=== PATIENT | female | born 1995 | race Caucasian/White ===

== ENCOUNTER 2019-12-20 20:54 | Emergency (ER) | payer MEDICAID ==
[2019-12-20] MEDS ORDERED: Sodium Chloride 0.9% 1,000 ML IV ONE (21:47)
--- NOTE | 2019-12-20 21:58 | EDM.PDOC ---
<Ezekiel Varma - Last Filed: 12/21/19 00:55> ED HPI GENERAL MEDICAL PROBLEM - General Chief Complaint: General Stated Complaint: TOOTH PAIN Time Seen by Provider: 12/20/19 21:03 - Related Data Allergies Allergy/AdvReac Type Severity Reaction Status Date / Time latex Allergy Rash Verified 12/20/19 21:15 meperidine [From Demerol] Allergy Anaphylactic Verified 12/20/19 21:13 Shock sulfamethoxazole Allergy Rash Verified 12/20/19 21:14 [From Bactrim] trimethoprim [From Bactrim] Allergy Rash Verified 12/20/19 21:14 Home Meds: Home Meds Amoxicillin/Potassium Clav [Augmentin 875-125 Tablet] 1 mg PO BID 12/20/19 [History] Aspirin 81 mg PO DAILY 12/20/19 [History] Vit37/Iron/Folic Acid [Prenata] 1 mg PO DAILY 12/20/19 [History] ED GENERAL MEDICAL PROCEDURES - Additional/Other Procedure(s) Other (Free Text) Procedure(s): Dental Block Consent was obtained, risks benefits and alternatives were discussed and understood. Following this a 27-gauge needle was used to introduce 3 mL of bupivacaine with epinephrine in a standard left inferior alveolar nerve block p attern. Needle was withdrawn intact and there were no immediate complications the patient tolerated the procedure well and on reexamination had improved pain. Arnold Varma MD Dental Block #2 Consent was obtained, risks benefits and alternatives were discussed and understood. Following this a 27-gauge needle was used to introduce 3 mL of bupivacaine with epinephrine in a standard left inferior alveolar nerve block pattern. Needle was withdrawn intact and there were no immediate complications the patient tolerated the procedure well and on reexamination had improved pain. Arnold Varma MD Departure - Departure Time of Disposition: 00:57 Disposition: Home, Self-Care 01 Condition: Good Clinical Impression: Pain, dental - Discharge Information *PRESCRIPTION DRUG MONITORING PROGRAM REVIEWED*: Not Applicable *COPY OF PRESCRIPTION DRUG MONITORING REPORT IN PATIENT EDWIN: Not Applicable Instructions: Tooth Injuries, [id number] Referrals: Janeen Oconnor NP [Primary Care Provider] - Forms: ED Department Discharge Additional Instructions: Please continue to take the Augmentin and be sure to follow-up with the OBs tomorrow as discussed. If you have worsening pain worsening swelling on your face inability to open your mouth or pain with swallowing please call your OB office right away or return to the ER. The following information is given to patients seen in the emergency department who are being discharged to home. This information is to outline your options for follow-up care. We provide all patients seen in our emergency department with a follow-up referral. The need for follow-up, as well as the timing and circumstances, are variable d epending upon the specifics of your emergency department visit. If you don't have a primary care physician on staff, we will provide you with a referral. We always advise you to contact your personal physician following an emergency department visit to inform them of the circumstance of the visit and for follow-up with them and/or the need for any referrals to a consulting specialist. The emergency department will also refer you to a specialist when appropriate. This referral assures that you have the opportunity for follow-up care with a specialist. All of these measure are taken in an effort to provide you with optimal care, which includes your follow-up. Under all circumstances we always encourage you to contact your private physician who remains a resource for coordinating your care. When calling for follow-up care, please make the office aware that this follow-up is from your recent emergency room visit. If for any reason you are refused follow-up, please contact the [facility] Emergency Department at and asked to speak to the emergency department charge nurse. - Assessment/Plan Assessment:: Pt discussed with OB. Given that BP has always been < 160 / 110 ok for dc with recheck tomorrow. Requests adding a urine protein to Cr ratio and will try for this. I blocked the patient twice as documented with some relief. Pt will f/u with OB and con't the augmentin that she is on already. <Bella Dunn - Last Filed: 12/24/19 10:23> ED HPI GENERAL MEDICAL PROBLEM - General Source of Information: Reports: Patient History Limitations: Reports: No Limitations - History of Present Illness INITIAL COMMENTS - FREE TEXT/NARRATIVE: HISTORY AND PHYSICAL: History of present illness: Patient is a 24-year-old female, 35weeks and 4 days , follows with [facility], who presents to the ED today with concern of left lower jaw and tooth pain that started over the past 2 to 3 days but worsened today. Patient states she was seen earlier in the clinic and was given amoxicillin and states that she took 1 dose of this this afternoon after the appointment. Patient states over the course of the day the lower jaw pain has become more painful and states that she has been taking 500 mg of tylenol every 1-2 hours and is unsure at this point how much tylenol she has taken. Patient states that this is her third and that with her other 2 children she had preeclampsia and is on a daily low dose ASA because of this. Patient denies chest pain, shortness of breath, or cough. Denies headache, neck stiff ness, change in vision, syncope, or near syncope. Denies nausea, vomiting, abdominal pain, diarrhea, constipation, or dysuria. Has not noted any blood in urine or stool. Patient has been eating and drinking appropriately. Review of systems: As per history of present illness and below otherwise all systems reviewed and negative. Past medical history: As per history of present illness and as reviewed below otherwise noncontributory. Surgical history: As per history of present illness and as reviewed below otherwise noncontributory. Social history: See social history for further information Family history: As per history of present illness and as reviewed below otherwise noncontributory. Physical exam: General: Patient is alert, oriented, and in no acute distress. Patient sitting comfortably on exam table. HEENT: There is no obvious abscess on exam. Patient does have pain with palpation of tooth #18 with mild edema of the gum line adjacent to this tooth. Otherwise, atraumatic, normocephalic, pupils equal and reactive bilaterally, negative for conjunctival pallor or scleral icterus, mucous membranes moist, TMs normal bilaterally, throat clear, neck supple, nontender, trachea midline. No drooling or trismus noted. No meningeal signs. No hot potato voice noted. Lungs: Clear to auscultation, breath sounds equal bilaterally, chest nontender. Heart: S1S2, regular rate and rhythm without overt murmur Abdomen: Gravid. Soft, nondistended, nontender. Negative for masses or hepatosplenomegaly. Negative for costovertebral tenderness. Pelvis: Stable nontender. Genitourinary: Deferred. Rectal: Deferred. Skin: Intact, warm, dry. No lesions or rashes noted. Extremities: Atraumatic, negative for cords or calf pain. Neurovascular unremarkable. Neuro: Awake, alert, oriented. Cranial nerves II through XII unremarkable. Cerebellum unremarkable. Motor and sensory unremarkable throughout. Exam nonfocal. Notes: FHT at bedside 155. BP on my initial exam 146/74 with HR 128 1L NS given with reexamination of vitals. BP 141/86, HR 115. Lowest BP taken today is 138/80 Dr. Varma has assumed care of patient and will follow remaining diagnostics and disposition. Diagnostics: CBC, CMP, lactate, uric acid, UA Therapeutics: NS, Morphine Impression: Hypertension in the 3rd trimester, r/o preeclampsia Dental pain Plan: Definitive disposition and diagnosis as appropriate pending reevaluation and review of above. Left Lower Oral/Mouth Pain Score (Numeric/FACES): 9 Past Medical History - Past Health History Medical/Surgical History: Denies Medical/Surgical History Cardiovascular History: Reports: None Respiratory History: Reports: None Gastrointestinal History: Reports: None Genitourinary History: Reports: None ADOBE BLOCK MAKER History: Reports: None Musculoskeletal History: Reports: None Neurological History: Reports: None Psychiatric History: Reports: None Endocrine/Metabolic History: Reports: None Hematologic History: Reports: None Oncologic (Cancer) History: Reports: None Dermatologic History: Reports: None - Past Surgical History Head Surgeries/Procedures: Reports: None HEENT Surgical History: Reports: Adenoidectomy, Tonsillectomy Other HEENT Surgeries/Procedures: dental surgery Social & Family History - Tobacco Use Smoking Status *Q: Never Smoker Second Hand Smoke Exposure: No - Recreational Drug Use Recreational Drug Use: No ED ROS GENERAL - Review of Systems Review Of Systems: Comprehensive ROS is negative, except as noted in HPI. ED EXAM, GENERAL - Physical Exam Exam: See Below (see dictation) Course - Vital Signs Last Recorded V/S: Last Vital Signs Temp 97.0 F 12/20/19 21:11 Pulse 111 H 12/21/19 00:00 Resp 18 12/21/19 00:00 BP 140/80 12/21/19 00:00 Pulse Ox 98 12/21/19 00:00 - Orders/Labs/Meds Labs: Laboratory Tests 12/20/19 12/20/19 12/20/19 Range/Units 22:00 22:00 22:29 WBC 14.50 H (4.0-11.0) K/uL RBC 4.22 L (4.30-5.90) M/uL Hgb 11.3 L (12.0-16.0) g/dL Hct 35.5 L (36.0-46.0) % MCV 84.1 (80.0-98.0) fL MCH 26.8 L (27.0-32.0) pg MCHC 31.8 (31.0-37.0) g/dL RDW Std Deviation 44.1 (28.0-62.0) fl RDW Coeff of Jessica 14 (11.0-15.0) % Plt Count 244 (150-400) K/uL MPV 10.00 (7.40-12.00) fL Neut % (Auto) 73.6 (48.0-80.0) % Lymph % (Auto) 18.9 (16.0-40.0) % Bates % (Auto) 6.8 (0.0-15.0) % Eos % (Auto) 0.6 (0.0-7.0) % Baso % (Auto) 0.1 (0.0-1.5) % Neut # (Auto) 10.7 H (1.4-5.7) K/uL Lymph # (Auto) 2.7 H (0.6-2.4) K/uL Bates # (Auto) 1.0 H (0.0-0.8) K/uL Eos # (Auto) 0.1 (0.0-0.7) K/uL Baso # (Auto) 0.0 (0.0-0.1) K/uL Nucleated RBC % 0.0 /100WBC Nucleated RBCs # 0 K/uL Lactate (0.20-2.00) mmol/L Sodium 138 (136-145) mmol/L Potassium 3.5 (3.5-5.1) mmol/L Chloride 102 (98-107) mmol/L Carbon Dioxide 21.9 (21.0-32.0) mmol/L BUN 7 (7.0-18.0) mg/dL Creatinine 0.8 (0.6-1.0) mg/dL Est Cr Clr Drug Dosing 92.02 mL/min Estimated GFR (MDRD) > 60.0 ml/min Glucose 126 H (74-106) mg/dL Uric Acid 4.6 (2.6-7.2) mg/dL Calcium 8.9 (8.5-10.1) mg/dL Total Bilirubin 0.6 (0.2-1.0) mg/dL AST 24 (15-37) IU/L ALT 22 (14-63) IU/L Alkaline Phosphatase 122 H (46-116) U/L Total Protein 7.0 (6.4-8.2) g/dL Albumin 2.7 L (3.4-5.0) g/dL Globulin 4.3 H (2.6-4.0) g/dL Albumin/Globulin Ratio 0.6 L (0.9-1.6) Urine Color YELLOW Urine Appearance CLEAR Urine pH 7.0 (5.0-8.0) Ur Specific [place] 1.015 (1.001-1.035) Urine Protein NEGATIVE (NEGATIVE) mg/dL Urine Glucose (UA) NEGATIVE (NEGATIVE) mg/dL Urine Ketones NEGATIVE (NEGATIVE) mg/dL Urine Occult Blood NEGATIVE (NEGATIVE) Urine Nitrite NEGATIVE (NEGATIVE) Urine Bilirubin NEGATIVE (NEGATIVE) Urine Urobilinogen 0.2 (<2.0) EU/dL Ur Leukocyte Esterase SMALL H (NEGATIVE) Urine RBC NONE SEEN (0-2/HPF) Urine WBC 2-4 (0-5/HPF) Ur Epithelial Cells FEW (NONE-FEW) Urine Bacteria 1+ H (NEGATIVE) Urine Mucus LIGHT (NONE-MOD) Acetaminophen <2.0 ug/mL 12/20/19 Range/Units 22:44 WBC (4.0-11.0) K/uL RBC (4.30-5.90) M/uL Hgb (12.0-16.0) g/dL Hct (36.0-46.0) % MCV (80.0-98.0) fL MCH (27.0-32.0) pg MCHC (31.0-37.0) g/dL RDW Std Deviation (28.0-62.0) fl RDW Coeff of Jessica (11.0-15.0) % Plt Count (150-400) K/uL MPV (7.40-12.00) fL Neut % (Auto) (48.0-80.0) % Lymph % (Auto) (16.0-40.0) % Bates % (Auto) (0.0-15.0) % Eos % (Auto) (0.0-7.0) % Baso % (Auto) (0.0-1.5) % Neut # (Auto) (1.4-5.7) K/uL Lymph # (Auto) (0.6-2.4) K/uL Bates # (Auto) (0.0-0.8) K/uL Eos # (Auto) (0.0-0.7) K/uL Baso # (Auto) (0.0-0.1) K/uL Nucleated RBC % /100WBC Nucleated RBCs # K/uL Lactate 1.9 (0.20-2.00) mmol/L Sodium (136-145) mmol/L Potassium (3.5-5.1) mmol/L Chloride (98-107) mmol/L Carbon Dioxide (21.0-32.0) mmol/L BUN (7.0-18.0) mg/dL Creatinine (0.6-1.0) mg/dL Est Cr Clr Drug Dosing mL/min Estimated GFR (MDRD) ml/min Glucose (74-106) mg/dL Uric Acid (2.6-7.2) mg/dL Calcium (8.5-10.1) mg/dL Total Bilirubin (0.2-1.0) mg/dL AST (15-37) IU/L ALT (14-63) IU/L Alkaline Phosphatase (46-116) U/L Total Protein (6.4-8.2) g/dL Albumin (3.4-5.0) g/dL Globulin (2.6-4.0) g/dL Albumin/Globulin Ratio (0.9-1.6) Urine Color Urine Appearance Urine pH (5.0-8.0) Ur Specific [place] (1.001-1.035) Urine Protein (NEGATIVE) mg/dL Urine Glucose (UA) (NEGATIVE) mg/dL Urine Ketones (NEGATIVE) mg/dL Urine Occult Blood (NEGATIVE) Urine Nitrite (NEGATIVE) Urine Bilirubin (NEGATIVE) Urine Urobilinogen (<2.0) EU/dL Ur Leukocyte Esterase (NEGATIVE) Urine RBC (0-2/HPF) Urine WBC (0-5/HPF) Ur Epithelial Cells (NONE-FEW) Urine Bacteria (NEGATIVE) Urine Mucus (NONE-MOD) Acetaminophen ug/mL Meds: Medications Discontinued Medications Generic Name Dose Route Start Last Admin Trade Name Blanca PRN Reason Stop Dose Admin Hydrocodone Bitart/Acetaminophen 1 tab 12/21/19 01:20 12/21/19 01:28 [place] 325-10 Mg PO 12/21/19 01:21 1 tab ONETIME ONE Administration Hydrocodone Bitart/Acetaminophen Confirm 12/21/19 01:21 12/21/19 01:29 Kaaawa 325-10 Mg Administered 12/21/19 01:22 Not Given Dose 1 tab .ROUTE .STK-MED ONE Sodium Chloride 1,000 mls @ 999 mls/hr 12/20/19 21:47 12/20/19 22:06 Normal Saline IV 12/20/19 22:47 999 mls/hr BOLUS ONE Administration Morphine Sulfate 2 mg 12/20/19 22:39 12/20/19 23:00 Morphine IVPUSH 12/20/19 22:40 2 mg ONETIME ONE Administration Sepsis Event Note (ED) - Evaluation Sepsis Screening Result: No Definite Risk
[2019-12-20 22:36] LABS: ACETAMINOPHEN <2.0 ug/mL; BLOOD UREA NITROGEN,BUN 7 mg/dL (7.0-18.0); CARBON DIOXIDE,CO2 21.9 mmol/L (21.0-32.0); CHLORIDE,CL 102 mmol/L (98-107); GLUCOSE RANDOM 126 mg/dL (74-106); POTASSIUM,K 3.5 mmol/L (3.5-5.1); SODIUM,NA 138 mmol/L (136-145)
[2019-12-20] MEDS ORDERED: Morphine 2 MG/ML SYRINGE IVPUSH ONE (22:39)
[2019-12-21] MEDS ORDERED: Acetaminophen/HYDROcodone 325-10 MG Tab PO ONE (01:20)
[2019-12-21] MEDS ORDERED: Acetaminophen/HYDROcodone 325-10 MG Tab ONE (01:21)
== END 2019-12-21 01:10 | disposition home or self-care (01) ==
LOC: MW.ED 20:54
DX: O99.613 Diseases of the digestive system complicating pregnancy, third trimester (principal); K08.89 Other specified disorders of teeth and supporting structures; O16.3 Unspecified maternal hypertension, third trimester; Z79.82 Long term (current) use of aspirin; Z88.8 Allergy status to other drugs, medicaments and biological substances; Z88.2 Allergy status to sulfonamides; Z88.1 Allergy status to other antibiotic agents; Z91.040 Latex allergy status; Z3A.35 35 weeks gestation of pregnancy
CPT/HCPCS: 36415; 64400; 80053; 80307; 81001; 83605; 84550; 85025; 87086; 93005; 96361; 96374; 99283; A9270; J2270; J7030

== ENCOUNTER 2020-01-17 17:53 | Inpatient (IN) | payer MEDICAID ==
[2020-01-17] MEDS ORDERED: Tranexamic Acid 1,000 MG in Sodium Chloride 0.9% 100 ML IV PRN (19:17)
[2020-01-17] MEDS ORDERED: Water For Irrigation,Sterile 1,000 ML Container IRR PRN (19:17)
[2020-01-17] MEDS ORDERED: Lidocaine 1% 50 ML MDV INJECT PRN (19:17)
[2020-01-17] MEDS ORDERED: Misoprostol 200 MCG Tab PO PRN (19:17)
[2020-01-17] MEDS ORDERED: Sodium Chloride 0.9% 2.5 ML Syringe FLUSH PRN (19:17)
[2020-01-17] MEDS ORDERED: Nalbuphine 10 MG/1 ML Vial IVPUSH PRN (19:17)
[2020-01-17] MEDS ORDERED: Sodium Chloride 0.9% 10 ML SDV IV PRN (19:17)
[2020-01-17] MEDS ORDERED: Methylergonovine 0.2 MG/1 ML Amp IM PRN (19:17)
[2020-01-17] MEDS ORDERED: Carboprost Tromethamine 250 MCG/1 ML Amp IM PRN (19:17)
[2020-01-17] MEDS ORDERED: Sodium Chloride 0.9% 10 ML Syringe FLUSH PRN (19:17)
[2020-01-17] MEDS ORDERED: Oxytocin/0.9 % Sodium Chloride 30 UNIT/500 ML BAG IV SCH ×2 (19:30→20:15)
[2020-01-17] MEDS ORDERED: Terbutaline 1 MG/ML SDV SUBCUT PRN (20:12)
[2020-01-17] MEDS: Lactated Ringers 1,000 ML IV SCH (20:35)
--- NOTE | 2020-01-17 22:23 | PCM.LDHP ---
L&D History of Present Illness - General Date of Service: 01/17/20 Admit Problem/Dx: Patient Status Order with Admit Dx/Problem 01/17/20 19:17 Patient Status [ADT] Routine Admission Diagnosis/Problem Admission Diagnosis/Problem Source of Information: Patient History Limitations: Reports: No Limitations - History of Present Illness Introduction:: 24yo at 39w GA here for elective IOL. complicated by anxiety for which she is on medication. Denies VB, LOF or Ctx. No acute complaints - Related Data Allergies/Adverse Reactions: Allergies Allergy/AdvReac Type Severity Reaction Status Date / Time corn Allergy Airway Verified 01/17/20 17:56 Tightness corn syrup Allergy Anaphylactic Verified 01/17/20 17:56 Shock latex Allergy Rash Verified 12/20/19 21:15 meperidine [From Demerol] Allergy Anaphylactic Verified 12/20/19 21:13 Shock sulfamethoxazole Allergy Rash Verified 12/20/19 21:14 [From Bactrim] trimethoprim [From Bactrim] Allergy Rash Verified 12/20/19 21:14 Home Medications: Home Meds Amoxicillin/Potassium Clav [Augmentin 875-125 Tablet] 1 mg PO BID 12/20/19 [History] Aspirin 81 mg PO DAILY 12/20/19 [History] Vit37/Iron/Folic Acid [Prenata] 1 mg PO DAILY 12/20/19 [History] Past Medical History - Past Health History Medical/Surgical History: Denies Medical/Surgical History Cardiovascular History: Reports: None Respiratory History: Reports: None Gastrointestinal History: Reports: None Genitourinary History: Reports: None CARDIOLOGY TECH History: Reports: Musculoskeletal History: Reports: None Neurological History: Reports: Migraines Psychiatric History: Reports: None Endocrine/Metabolic History: Reports: None Hematologic History: Reports: None Oncologic (Cancer) History: Reports: None Dermatologic History: Reports: None - Infectious Disease History Infectious Disease History: Reports: None - Past Surgical History Head Surgeries/Procedures: Reports: None HEENT Surgical History: Reports: Adenoidectomy, Tonsillectomy Other HEENT Surgeries/Procedures: dental surgery Female Surgical History: Reports: None Neurological Surgical History: Reports: None Social & Family History - Family History Family Medical History: Noncontributory - Tobacco Use Tobacco Use Status *Q: Never Tobacco User Second Hand Smoke Exposure: No - Caffeine Use Caffeine Use: Reports: Coffee, Soda H&P Review of Systems - Review of Systems: Review Of Systems: See Below General: Reports: No Symptoms HEENT: Reports: No Symptoms Pulmonary: Reports: No Symptoms Cardiovascular: Reports: No Symptoms Gastrointestinal: Reports: No Symptoms Genitourinary: Reports: No Symptoms Musculoskeletal: Reports: No Symptoms Skin: Reports: No Symptoms Psychiatric: Reports: No Symptoms Neurological: Reports: No Symptoms L&D Exam - Exam Exam: See Below - Vital Signs Weight: 111.584 kg - OB Specific Contraction Intensity: Irritability Movement: Active Heart Tones: Present Heart Tones per Min: 130 Heart Rate (FHR) Variability: Moderate (6-25 bmp) Presentation: Vertex Estimated Weight: 8lbs - Millan Score Millan Score Cervix Position: Midposition Millan Score Consistency: Medium Millan Score Effacement: 31-50% Millan Score Dilation: 1-2 cm Millan Score Infant's Station: -3 Millan Score Total: 4 - Exam General: Alert, Oriented Neck: Supple GI/Abdominal Exam: Soft, Non-Tender Back Exam: Normal Inspection Extremities: Normal Inspection Psychiatric: Alert, Normal Affect, Normal Mood (vaginal exam performed by nurse) - Patient Data Lab Results Last 24 hrs: Laboratory Results - last 24 hr 01/17/20 01/17/20 01/17/20 Range/Units 18:00 18:10 18:10 WBC 12.80 H (4.0-11.0) K/uL RBC 4.06 L (4.30-5.90) M/uL Hgb 10.5 L (12.0-16.0) g/dL Hct 33.4 L (36.0-46.0) % MCV 82.3 (80.0-98.0) fL MCH 25.9 L (27.0-32.0) pg MCHC 31.4 (31.0-37.0) g/dL RDW Std Deviation 44.3 (28.0-62.0) fl RDW Coeff of Jessica 15 (11.0-15.0) % Plt Count 264 (150-400) K/uL MPV 10.40 (7.40-12.00) fL Nucleated RBC % 0.0 /100WBC Nucleated RBCs # 0 K/uL SARS-CoV-2 RNA (JEWELS) NEGATIVE (NEGATIVE) Blood Type O POSITIVE Antibody Screen NEGATIVE Result Diagrams: 01/17/20 18:10 - Problem List (1) Term SNOMED Code(s): 84153966 ICD Code: Z34.90 - ENCNTR FOR SUPRVSN OF NORMAL , UNSP, UNSP TRIMESTER Status: Acute Current Visit: Yes (2) Encounter for induction of labor SNOMED Code(s): 794010877 ICD Code: Z34.90 - ENCNTR FOR SUPRVSN OF NORMAL , UNSP, UNSP TRIMESTER Status: Acute Current Visit: Yes Problem List Initiated/Reviewed/Updated: Yes Orders Last 24hrs: Active Orders 24 hr Category Date Time Status Patient Status [ADT] Routine ADT 01/17/20 19:17 Active Bedrest Bathroom Privileges [RC] ASDIRECTED Care 01/17/20 20:13 Active Communication Order [RC] ASDIRECTED Care 01/17/20 20:13 Active Communication Order [RC] ASDIRECTED Care 01/17/20 20:13 Active Heart Tones [RC] CONTINUOUS Care 01/17/20 19:17 Active Non Stress Test [RC] PER UNIT ROUTINE Care 01/17/20 19:17 Active May Shower [RC] ASDIRECTED Care 01/17/20 19:17 Active Notify Provider [RC] PRN Care 01/17/20 19:17 Active Notify Provider [RC] PRN Care 01/17/20 20:13 Active Notify Provider [RC] PRN Care 01/17/20 20:13 Active Notify Provider [RC] STAT Care 01/17/20 20:13 Active Up ad Rufina [RC] ASDIRECTED Care 01/17/20 19:17 Active Vaginal Exam [RC] PRN Care 01/17/20 19:17 Active Vaginal Exam [RC] PRN Care 01/17/20 20:13 Active Vital Signs [RC] PER UNIT ROUTINE Care 01/17/20 19:17 Active Vital Signs [RC] PER UNIT ROUTINE Care 01/17/20 20:13 Active RPR (SYPHILIS SERO) W/ RFLX [REF] Routine Lab 01/17/20 18:10 Ordered Butorphanol [Stadol] Med 01/17/20 19:17 Active 1 mg IVPUSH Q1H PRN Carboprost Tromethamine [Hemabate DS] Med 01/17/20 19:17 Active 250 mcg IM ASDIRECTED PRN Lactated Ringers [Ringers, Lactated] 1,000 ml Med 01/17/20 19:30 Active IV ASDIRECTED Lidocaine 1% [Xylocaine 1%] Med 01/17/20 19:17 Active 50 ml INJECT ONETIME PRN Methylergonovine [Methergine] Med 01/17/20 19:17 Active 0.2 mg IM ASDIRECTED PRN Nalbuphine [Nubain] Med 01/17/20 19:17 Active 10 mg IVPUSH Q1H PRN Oxytocin/0.9 % Sodium Chloride [Oxytocin 30 Unit/500 ML Med 01/17/20 19:30 Active -NS] 30 unit in 500 ml IV TITRATE Oxytocin/0.9 % Sodium Chloride [Oxytocin 30 Unit/500 ML Med 01/17/20 20:15 Active -NS] 30 unit in 500 ml IV TITRATE Sodium Chloride 0.9% [Normal Saline] Med 01/17/20 19:17 Active 10 ml IV ASDIRECTED PRN Sodium Chloride 0.9% [Saline Flush] Med 01/17/20 19:17 Active 10 ml FLUSH ASDIRECTED PRN Sodium Chloride 0.9% [Saline Flush] Med 01/17/20 19:17 Active 2.5 ml FLUSH ASDIRECTED PRN Terbutaline [Brethine] Med 01/17/20 20:12 Active 0.25 mg SUBCUT ASDIRECTED PRN Tranexamic Acid [Cyklokapron] 1,000 mg Med 01/17/20 19:17 Active Sodium Chloride 0.9% [Normal Saline] 100 ml IV ONETIME Water For Irrigation,Sterile [Sterile Water for Med 01/17/20 19:17 Active Irrigation] 1,000 ml IRR ASDIRECTED PRN miSOPROStoL [Cytotec] Med 01/17/20 19:17 Active 200 mcg PO ONETIME PRN Scalp Electrode [WOMSER] Per Unit Routine Oth 01/17/20 19:17 Ordered Medication Administration Instruction [OM.PC] Q3H Oth 01/17/20 20:15 Ordered Peripheral IV Insertion Adult [OM.PC] Routine Oth 01/17/20 19:17 Ordered Resuscitation Status Routine Resus Stat 01/17/20 19:17 Ordered Medication Orders Butorphanol Tartrate (Stadol) 1 mg IVPUSH Q1H PRN PRN Reason: Pain Carboprost Tromethamine (Hemabate Ds) 250 mcg IM ASDIRECTED PRN PRN Reason: Post Hemorrhage Lactated Ringer's (Ringers, Lactated) 1,000 mls @ 150 mls/hr IV ASDIRECTED ARISTIDES Last Admin: 01/17/20 20:35 Dose: 150 mls/hr Documented by: LISA Oxytocin/Sodium Chloride (Oxytocin 30 Unit/500 Ml-Ns) 30 unit in 500 mls @ 500 mls/hr IV TITRATE ARISTIDES Tranexamic Acid 1,000 mg/ (Sodium Chloride) 110 mls @ 660 mls/hr IV ONETIME PRN PRN Reason: Bleeding Oxytocin/Sodium Chloride (Oxytocin 30 Unit/500 Ml-Ns) 30 unit in 500 mls @ 2 mls/hr IV TITRATE ARISTIDES; Protocol Last Titration: 01/17/20 22:10 Dose: 0 munits/min, 0 mls/hr Documented by: Titration: 01/17/20 21:05 Dose: 4 munits/min, 4 mls/hr Documented by: Admin: 01/17/20 20:33 Dose: 2 munits/min, 2 mls/hr Documented by: LISA Lidocaine HCl (Xylocaine 1%) 50 ml INJECT ONETIME PRN PRN Reason: Laceration repair Methylergonovine Maleate (Methergine) 0.2 mg IM ASDIRECTED PRN PRN Reason: Post Hemorrhage Misoprostol (Cytotec) 200 mcg PO ONETIME PRN PRN Reason: Post Hemorrhage Nalbuphine HCl (Nubain) 10 mg IVPUSH Q1H PRN PRN Reason: Pain (severe 7-10) Sodium Chloride (Saline Flush) 10 ml FLUSH ASDIRECTED PRN PRN Reason: Keep Vein Open Sodium Chloride (Saline Flush) 2.5 ml FLUSH ASDIRECTED PRN PRN Reason: Keep Vein Open Sodium Chloride (Normal Saline) 10 ml IV ASDIRECTED PRN PRN Reason: IV Use Sterile Water (Sterile Water For Irrigation) 1,000 ml IRR ASDIRECTED PRN PRN Reason: delivery Terbutaline Sulfate (Brethine) 0.25 mg SUBCUT ASDIRECTED PRN PRN Reason: Tacysystole Assessment/Plan Comment:: 24yo at 39w GA here for elective IOL. Reactive strip, not izabela. Millan score of 4 Will give cytotec. Epidural PRN. Risks and benefits discussed. Patient agreeable to the plan.
[2020-01-17] MEDS: Misoprostol 25 MCG (1/4 of 100 MCG) Tab PO PRN (22:54)
[2020-01-17] MEDS: Misoprostol 50 MCG (1/2 of 100 MCG) Tab VAG PRN (22:59)
[2020-01-18] MEDS: Butorphanol 1 MG/ML SDV IVPUSH PRN ×2 (02:47→05:44)
[2020-01-18] MEDS ORDERED: fentaNYL 100 MCG/2 ML SDV ONE ×5 (05:01→23:25)
[2020-01-18] MEDS ORDERED: Ropivacaine HCl/PF 0 ML ONE (05:01)
[2020-01-18] MEDS: Lactated Ringers 1,000 ML IV SCH ×4 (05:03→20:04)
--- NOTE | 2020-01-18 05:58 | PCM.PREANE ---
Preanesthetic Assessment - Procedure Proposed Procedure: ROSALVA for IUP at 39 weeks in active labor. 0504- Bedside in LDR 3 for medical history and physical exam. - Anesthesia/Transfusion/Family Hx Anesthesia History: Prior Anesthesia Without Reaction (Pt reports tonsillectomy with no complicatins. One non-working epidural with PDPH, and one one-sided epidural.) Family History of Anesthesia Reaction: No Transfusion History: No Prior Transfusion(s) - Review of Systems General: No Symptoms Pulmonary: No Symptoms Cardiovascular: No Symptoms Gastrointestinal: No Symptoms Neurological: Seizure (Hx of absence/ petit mal seizures. Off medication during , reports no increase in frequency. "Every few months" per pt.) Other: Reports: Anxiety - Physical Assessment NPO Status Date: 01/17/20 (NPO except clear liquids. Last food at 1800) NPO Status Time: 18:00 Height: 1.6 m Weight: 111.584 kg ASA Class: 2 Mental Status: Alert & Oriented x3 Airway Class: Mallampati = 2 Dentition: Reports: Normal Dentition Thyro-Mental Finger Breadths: 3 Mouth Opening Finger Breadths: 3 ROM/Head Extension: Full Lungs: Normal Respiratory Effort Cardiovascular: Regular Rate, Regular Rhythm - Lab Values: Laboratory Last Values WBC 12.80 K/uL (4.0-11.0) H 01/17/20 18:10 RBC 4.06 M/uL (4.30-5.90) L 01/17/20 18:10 Hgb 10.5 g/dL (12.0-16.0) L 01/17/20 18:10 Hct 33.4 % (36.0-46.0) L 01/17/20 18:10 MCV 82.3 fL (80.0-98.0) 01/17/20 18:10 MCH 25.9 pg (27.0-32.0) L 01/17/20 18:10 MCHC 31.4 g/dL (31.0-37.0) 01/17/20 18:10 RDW Std Deviation 44.3 fl (28.0-62.0) 01/17/20 18:10 RDW Coeff of Jessica 15 % (11.0-15.0) 01/17/20 18:10 Plt Count 264 K/uL (150-400) 01/17/20 18:10 MPV 10.40 fL (7.40-12.00) 01/17/20 18:10 Nucleated RBC % 0.0 /100WBC 01/17/20 18:10 Nucleated RBCs # 0 K/uL 01/17/20 18:10 SARS-CoV-2 RNA (JEWELS) NEGATIVE (NEGATIVE) 01/17/20 18:00 Blood Type O POSITIVE 01/17/20 18:10 Antibody Screen NEGATIVE 01/17/20 18:10 - Allergies Allergies/Adverse Reactions: Allergies Allergy/AdvReac Type Severity Reaction Status Date / Time corn Allergy Airway Verified 01/17/20 17:56 Tightness corn syrup Allergy Anaphylactic Verified 01/17/20 17:56 Shock latex Allergy Rash Verified 12/20/19 21:15 meperidine [From Demerol] Allergy Anaphylactic Verified 12/20/19 21:13 Shock sulfamethoxazole Allergy Rash Verified 12/20/19 21:14 [From Bactrim] trimethoprim [From Bactrim] Allergy Rash Verified 12/20/19 21:14 - Acknowledgements Anesthesia Type Planned: Epidural Pt an Appropriate Candidate for the Planned Anesthesia: Yes Alternatives and Risks of Anesthesia Discussed w Pt/Guardian: Yes Pt/Guardian Understands and Agrees with Anesthesia Plan: Yes Additional Comments: Discussed epidural risks (including risk of PDPH based on past occurrence), benefits, alternatives, DISTRIBUTION SUPERINTENDENT usage, anesthesia coverage with patient. Discussed possibility of difficult placement or inability to place based on past history of difficult epidurals. All questions answered and concerns addressed. RN present as witness. Normal appearing back/spine, no scoliosis noted. 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: Musculoskeletal History: Reports: None Neurological History: Reports: Migraines Psychiatric History: Reports: None Endocrine/Metabolic History: Reports: None Hematologic History: Reports: None Oncologic (Cancer) History: Reports: None Dermatologic History: Reports: None - Infectious Disease History Infectious Disease History: Reports: None - Past Surgical History Head Surgeries/Procedures: Reports: None HEENT Surgical History: Reports: Adenoidectomy, Tonsillectomy Other HEENT Surgeries/Procedures: dental surgery Female Surgical History: Reports: None Neurological Surgical History: Reports: None - SUBSTANCE USE Tobacco Use Status *Q: Never Tobacco User Tobacco Use Within Last Twelve Months: No Second Hand Smoke Exposure: No - HOME MEDS Home Medications: Home Meds Amoxicillin/Potassium Clav [Augmentin 875-125 Tablet] 1 mg PO BID 12/20/19 [History] Aspirin 81 mg PO DAILY 12/20/19 [History] Vit37/Iron/Folic Acid [Prenata] 1 mg PO DAILY 12/20/19 [History] - CURRENT (IN HOUSE) MEDS Current Meds: Current Medications Butorphanol Tartrate (Stadol) 1 mg IVPUSH Q1H PRN PRN Reason: Pain Last Admin: 01/18/20 05:44 Dose: 1 mg Documented by: Carboprost Tromethamine (Hemabate Ds) 250 mcg IM ASDIRECTED PRN PRN Reason: Post Hemorrhage Lactated Ringer's (Ringers, Lactated) 1,000 mls @ 150 mls/hr IV ASDIRECTED ARISTIDES Last Admin: 01/18/20 05:03 Dose: 150 mls/hr Documented by: Oxytocin/Sodium Chloride (Oxytocin 30 Unit/500 Ml-Ns) 30 unit in 500 mls @ 500 mls/hr IV TITRATE ARISTIDES Tranexamic Acid 1,000 mg/ (Sodium Chloride) 110 mls @ 660 mls/hr IV ONETIME PRN PRN Reason: Bleeding Oxytocin/Sodium Chloride (Oxytocin 30 Unit/500 Ml-Ns) 30 unit in 500 mls @ 2 mls/hr IV TITRATE ARISTIDES; Protocol Last Titration: 01/18/20 05:01 Dose: 2 munits/min, 2 mls/hr Documented by: Lidocaine HCl (Xylocaine 1%) 50 ml INJECT ONETIME PRN PRN Reason: Laceration repair Methylergonovine Maleate (Methergine) 0.2 mg IM ASDIRECTED PRN PRN Reason: Post Hemorrhage Misoprostol (Cytotec) 200 mcg PO ONETIME PRN PRN Reason: Post Hemorrhage Misoprostol (Cytotec) 25 mcg PO Q4HR PRN PRN Reason: cervical ripening Last Admin: 01/17/20 22:54 Dose: 25 mcg Documented by: Misoprostol (Cytotec) 25 mcg VAG Q4HR PRN PRN Reason: cervical ripening Last Admin: 01/17/20 22:59 Dose: 25 mcg Documented by: Nalbuphine HCl (Nubain) 10 mg IVPUSH Q1H PRN PRN Reason: Pain (severe 7-10) Sodium Chloride (Saline Flush) 10 ml FLUSH ASDIRECTED PRN PRN Reason: Keep Vein Open Sodium Chloride (Saline Flush) 2.5 ml FLUSH ASDIRECTED PRN PRN Reason: Keep Vein Open Sodium Chloride (Normal Saline) 10 ml IV ASDIRECTED PRN PRN Reason: IV Use Sterile Water (Sterile Water For Irrigation) 1,000 ml IRR ASDIRECTED PRN PRN Reason: delivery Terbutaline Sulfate (Brethine) 0.25 mg SUBCUT ASDIRECTED PRN PRN Reason: Tacysystole Discontinued Medications Fentanyl (Sublimaze) Confirm Administered Dose 200 mcg .ROUTE .STK-MED ONE Stop: 01/18/20 05:02 Ropivacaine (Naropin 0.2%) Confirm Administered Dose 100 mls @ as directed .ROUTE .STK-MED ONE Stop: 01/18/20 05:02
--- NOTE | 2020-01-18 06:22 | PCM.SN.2 ---
- Free Text/Narrative Note: Anesthesia time [id number] 0505- Bedside LDR 3. Discussed epidural risks (including risk of PDPH based on past occurrence), benefits, alternatives, WASHTUB WORKER usage, anesthesia coverage with patient. Discussed possibility of difficult placement or inability to place based on past history of difficult epidurals. 0510- All questions answered and concerns addressed. RN present as witness. Consent signed. 0516- Sitting position, monitors on, "time out" completed. Sterile technique with chlorhexidine prep, sterile plastic drape, non-latex sterile gloves. Attempt #1 at L3-4, BRIANA with saline at 6cm. No passive CSF return noted from needle. 0523- Catheter threaded to 11cm without resistance, no paresthesias. Upon aspirating from catheter, small swirl of pale pink fluid noted (~1 ml with 5 second aspiration). Questionable dural puncture. Catheter removed, no test dose given. Discussed implications with patient, including possible PDPH. Pt agrees to proceed with second attempt. 0528- Attempt #2 at L4-5 with BRIANA with saline at 6cm. No CSF noted from needle. Catheter threaded without resistance or paresthesias to 11 cm. Again, to aspiration, barbotage of pale pink fluid at slow rate. Catheter removed 0530, no test dose given. Area cleansed with sterile saline, sterile gauze and tegaderm to sites. [id number] Discussed possibility of attempt by other provider, and she prefers to proceed without epidural at this time. Discussed other analgesia options including low-dose spinal closer to delivery. Will discuss both the possible dural puncture and alternative analgesia methods with oncoming anesthesia team. Reviewed sign and symptoms of PDPH with patient, as well as treatment options including epidural blood patch should PDPH occur.
[2020-01-18] MEDS ORDERED: Bupivicaine/fentaNYL/NS 250 ML ONE (09:11)
[2020-01-18] MEDS: Misoprostol 50 MCG (1/2 of 100 MCG) Tab VAG PRN (13:51)
[2020-01-18] MEDS: Misoprostol 25 MCG (1/4 of 100 MCG) Tab PO PRN (13:53)
[2020-01-18] MEDS ORDERED: Ropivacaine HCl/PF 100 ML ONE (20:20)
--- NOTE | 2020-01-18 20:34 | PCM.PRNOTE ---
- Free Text/Narrative Note: Aneracheal NOte I was called to assess this patient with a complain t of incomplete analgesia. The epidural has been providing less and less analgesia over the last few hours. A sitting dose of 100 mcg fentanyl plus 5 cc 2% lido with epi was given at 2024. She immediately reports improved and satifactory analgesia. Epidural infusion bag was changed with a new bag of 100cc 0.2% ropiviciane with 1 mcg cc fentanyl. Rate is 8 cc hr, with a 6 cc bolus q 20 minute prn. Time with patient Jose Elias CRNA
--- NOTE | 2020-01-18 23:35 | PCM.PRNOTE ---
- Free Text/Narrative Note: Anes Note Patient requestes an additional sitting dose. Cervix has changed to 5-6 and head is coming down. A top up dose of 5 cc 2% lido with epi plus 100 mcg fentanyl was administered. Patient reports immediate improvement in analgesia. Jsoe Robert CRNA
[2020-01-19] MEDS ORDERED: fentaNYL 100 MCG/2 ML SDV ONE (00:17)
[2020-01-19] MEDS ORDERED: Propofol 200 MG/20 ML SDV ONE (00:26)
[2020-01-19] MEDS ORDERED: ceFAZolin 1 GM Vial ONE (00:29)
[2020-01-19] MEDS ORDERED: Morphine PF 10 MG/10 ML SDV ONE (00:46)
[2020-01-19] MEDS ORDERED: diphenhydrAMINE 50 MG/ML SDV IVPUSH PRN (01:01)
[2020-01-19] MEDS ORDERED: Misoprostol 200 MCG Tab RECTAL PRN (01:01)
[2020-01-19] MEDS ORDERED: Bisacodyl 10 MG Supp RECTAL PRN (01:01)
[2020-01-19] MEDS ORDERED: Ondansetron 4 MG/2 ML SDV IVPUSH PRN (01:01)
[2020-01-19] MEDS ORDERED: Tranexamic Acid 1,000 MG in Sodium Chloride 0.9% 100 ML IV PRN (01:01)
[2020-01-19] MEDS ORDERED: Lanolin 100% Cream 7 GM Tube TOP PRN (01:01)
[2020-01-19] MEDS ORDERED: Oxytocin 10 Units/1 ML SDV IM PRN (01:01)
[2020-01-19] MEDS ORDERED: Methylergonovine 0.2 MG/1 ML Amp IM PRN (01:01)
--- NOTE | 2020-01-19 01:06 | PCM.OPNOTE ---
- General Post-Op/Procedure Note Date of Surgery/Procedure: 01/19/20 Operative Procedure(s): emergency C/section. Pre Op Diagnosis: IUP term in active labor, prolapes umblical cord. Post-Op Diagnosis: Same Anesthesia Technique: Epidural Primary Surgeon: Richie Mccollum EBL in mLs: 800 Complications: None Condition: Good
[2020-01-19] MEDS ORDERED: Lactated Ringers 1,000 ML IV SCH (01:15)
--- NOTE | 2020-01-19 01:20 | PCM.POSTAN ---
POST ANESTHESIA ASSESSMENT - MENTAL STATUS Mental Status: Alert - RESPIRATORY Respiratory Status: Respiratory Rate WNL - CARDIOVASCULAR CV Status: Pulse Rate WNL - GASTROINTESTINAL GI Status: No Symptoms - POST OP HYDRATION Hydration Status: Adequate & Stable
[2020-01-19] MEDS: Ketorolac 30 MG/ML SDV IVPUSH SCH ×4 (01:43→20:05)
--- NOTE | 2020-01-19 01:50 | PCM.SN.2 ---
- Free Text/Narrative Note: 01/18/2020 1845 Fatimah is a 24 yo that is here today with continuation of elective IOL at 39+ weeks gestation with ineffective cytotec and pitocin administration. Pitocin discontinued during the day and cytotec readministered at ~ 2:30 pm. SVE 3/40/-3, intact. AROM completed with large meconium stained fluid. head well applied, umbilical cord not palpated circumferentially. SVE 3/40/-2. Jason catheter placed, balloons filled to 80/80ml. FHR deceleration noted immediately following. Jason catheter balloon inflation x 2 decreased to 60/60 ml. FHR returned to baseline with accelerations thereafter, uneventful. RN notified to call provider if problems or concerns arise. 01/18/20202044 Provider called to assess Jason catheter status. RN reports Jason catheter still in place, RN reports no concerns at this time. 01/18/2020 2253 RN called provider to notify that Jason catheter was spontaneously expelled without incident. SVE 5/70/-2. 01/18/2020 2342 RN called provider to notify SVE 8-9/100/-1 and requested provider present to the bedside for delivery. 01/18/2020 2351 CNM at bedside. FHR 135 bpm. Patient reports increased pressure and discomfort consistent with transition to complete. RN directed to call provider when patient complete and ready to start pushing. CNM to stay in house on the floor. 01/19/2020 0005 RN called CNM to bedside due to spontaneous cord prolapse following maternal and/or position change. CNM entered the room, patient in semi-fowlers position with umbilical cord clearly protruding from vaginal canal. Dr. Mccollum called at [phone] to be notified, immediately en route, emergency section called. jigman notified to call OR team to prep. Patient epiduralized with olmedo catheter in place. Pitocin not infusing. RN instructed to move patient to exaggerated knee chest position. CNM immediately donned sterile gloves and manually decompressed cord, hand left in place until delivery via emergency primary LTCS. FHR 110s via external EFM. 100% O2 via NRB mask applied to patient. IV fluid bolus infusing. Exaggerated knee chest position achieved and bed placed in reverse Trendelenburg. Patient bed moved OR immediately. FHR via umbilical pulsation ~ 60s. Acid Operator, Dr. Mccollum and OR team entered the room shortly thereafter. Patient moved from knee-chest position in bed to operating table, abdomen sterilized with iodine, draped, and procedure began. Shortly after, Dr. Mccollum instructed CNM to remove hand from vaginal canal as baby was being delivered. Umbilical cord pulsation at that time was still faintly palpable. See Procedure note.
--- NOTE | 2020-01-19 09:36 | PCM48HPAN ---
Post Anesthesia Note - EVALUATION WITHIN 48HRS OF ANESTHETIC Vital Signs in Normal Range: Yes Patient Participated in Evaluation: Yes Respiratory Function Stable: Yes Airway Patent: Yes Cardiovascular Function Stable: Yes Hydration Status Stable: Yes Pain Control Satisfactory: Yes Nausea and Vomiting Control Satisfactory: Yes Mental Status Recovered: Yes Vital Signs: Last Vital Signs Temp 36.6 C 01/19/20 08:00 Pulse 87 01/19/20 09:00 Resp 20 01/19/20 08:00 BP 122/63 01/19/20 08:00 Pulse Ox 95 01/19/20 09:00
--- NOTE | 2020-01-19 10:08 | PCM.POSTAN ---
POST ANESTHESIA ASSESSMENT - VITAL SIGNS Vital Signs: Last Vital Signs Temp 36.6 C 01/19/20 08:00 Pulse 87 01/19/20 09:00 Resp 20 01/19/20 08:00 BP 122/63 01/19/20 08:00 Pulse Ox 95 01/19/20 09:00 - RESPIRATORY Respiratory Status: Respiratory Rate WNL - CARDIOVASCULAR CV Status: Pulse Rate WNL - GASTROINTESTINAL GI Status: No Symptoms - POST OP HYDRATION Hydration Status: Adequate & Stable
--- NOTE | 2020-01-19 17:22 | PCM.PNPP ---
- General Info Date of Service: 01/19/20 Admission Dx/Problem (Free Text): Patient Status Order with Admit Dx/Problem 01/17/20 19:17 Patient Status [ADT] Routine Admission Diagnosis/Problem Admission Diagnosis/Problem Fatimah is a 24 yo PPD0 S/P primary LTCS to term NBF due to sudden spontatenous umbilical cord prolapse during second stage with commencement of pushing. O pos, RI, GBS negative. COVID negative. H/P obesity. Hemodynamically stable, afebrile. Patient is exclusively pumping well; intubated transferred to [facility] today at 6 am for NICU support. Patient reports she is eating and hydrating independently; has not ambulated at this time; olmedo catheter in place draining clear yellow urine. LTCS dressing intact with KATHERINE dressing, approximated, small old blood noted to dressing. Patient denies any problems or concerns at this time except mild-moderate intermittent uterine cramping relieved with Tylenol and Ibuprofen. Patient reports small to moderate rubra lochia with no clots. Functional Status: Reports: Pain Controlled - Review of Systems General: Reports: No Symptoms HEENT: Reports: No Symptoms Pulmonary: Reports: No Symptoms Cardiovascular: Reports: No Symptoms Gastrointestinal: Reports: No Symptoms Genitourinary: Reports: No Symptoms Musculoskeletal: Reports: No Symptoms Skin: Reports: No Symptoms Neurological: Reports: No Symptoms Psychiatric: Reports: No Symptoms - General Info Date of Service: 01/19/20 - Patient Data Vital Signs - Most Recent: Last Vital Signs Temp 97.2 F 01/19/20 16:00 Pulse 99 01/19/20 16:00 Resp 14 01/19/20 16:00 BP 125/59 L 01/19/20 16:00 Pulse Ox 97 01/19/20 16:00 Weight - Most Recent: 246 lb 0.01 oz I&O - Last 24 Hours: Intake & Output 01/19/20 01/19/20 01/19/20 06:59 14:59 22:59 Intake Total 3000 Output Total 1650 700 Balance 1350 -700 Lab Results - Last 24 Hours: Laboratory Results - last 24 hr 01/19/20 Range/Units 10:24 WBC 12.44 H (4.0-11.0) K/uL RBC 3.28 L (4.30-5.90) M/uL Hgb 8.3 L (12.0-16.0) g/dL Hct 27.1 L (36.0-46.0) % MCV 82.6 (80.0-98.0) fL MCH 25.3 L (27.0-32.0) pg MCHC 30.6 L (31.0-37.0) g/dL RDW Std Deviation 46.0 (28.0-62.0) fl RDW Coeff of Jessica 15 (11.0-15.0) % Plt Count 222 (150-400) K/uL MPV 9.90 (7.40-12.00) fL Neut % (Auto) 70.6 (48.0-80.0) % Lymph % (Auto) 21.7 (16.0-40.0) % [place] % (Auto) 7.1 (0.0-15.0) % Eos % (Auto) 0.5 (0.0-7.0) % Baso % (Auto) 0.1 (0.0-1.5) % Neut # (Auto) 8.8 H (1.4-5.7) K/uL Lymph # (Auto) 2.7 H (0.6-2.4) K/uL [place] # (Auto) 0.9 H (0.0-0.8) K/uL Eos # (Auto) 0.1 (0.0-0.7) K/uL Baso # (Auto) 0.0 (0.0-0.1) K/uL Nucleated RBC % 0.0 /100WBC Nucleated RBCs # 0 K/uL Med Orders - Current: Current Medications Bisacodyl (Dulcolax) 10 mg RECTAL ONETIME PRN PRN Reason: Constipation Butorphanol Tartrate (Stadol) 1 mg IVPUSH Q1H PRN PRN Reason: Pain Last Admin: 01/18/20 05:44 Dose: 1 mg Documented by: Carboprost Tromethamine (Hemabate Ds) 250 mcg IM ASDIRECTED PRN PRN Reason: Post Hemorrhage Diphenhydramine HCl (Benadryl) 25 mg IVPUSH Q6H PRN PRN Reason: Itching or Nausea Docusate Sodium (Colace) 100 mg PO BID ARISTIDES Emollient Ointment (Lansinoh Hpa) 0 gm TOP ASDIRECTED PRN PRN Reason: Sore Nipples Lactated Ringer's (Ringers, Lactated) 1,000 mls @ 150 mls/hr IV ASDIRECTED [facility] Last Admin: 01/18/20 20:04 Dose: 150 mls/hr Documented by: Oxytocin/Sodium Chloride (Oxytocin 30 Unit/500 Ml-Ns) 30 unit in 500 mls @ 500 mls/hr IV TITRATE ARISTIDES Tranexamic Acid 1,000 mg/ (Sodium Chloride) 110 mls @ 660 mls/hr IV ONETIME PRN PRN Reason: Bleeding Oxytocin/Sodium Chloride (Oxytocin 30 Unit/500 Ml-Ns) 30 unit in 500 mls @ 2 mls/hr IV TITRATE [facility]; Protocol Last Titration: 01/18/20 13:00 Dose: 0 munits/min, 0 mls/hr Documented by: Lactated Ringer's (Ringers, Lactated) 1,000 mls @ 125 mls/hr IV ASDIRECTED [facility] Tranexamic Acid 1,000 mg/ (Sodium Chloride) 110 mls @ 660 mls/hr IV ONETIME PRN PRN Reason: Bleeding Ibuprofen (Motrin) 800 mg PO Q8H PRN PRN Reason: mild pain or fever Ketorolac Tromethamine (Toradol) 30 mg IVPUSH Q6H [facility] Stop: 01/20/20 01:31 Last Admin: 01/19/20 13:52 Dose: 30 mg Documented by: Lidocaine HCl (Xylocaine 1%) 50 ml INJECT ONETIME PRN PRN Reason: Laceration repair Methylergonovine Maleate (Methergine) 0.2 mg IM ASDIRECTED PRN PRN Reason: Post Hemorrhage Methylergonovine Maleate (Methergine) 0.2 mg IM ONETIME PRN PRN Reason: Excessive Vaginal Bleeding Misoprostol (Cytotec) 200 mcg PO ONETIME PRN PRN Reason: Post Hemorrhage Misoprostol (Cytotec) 25 mcg PO Q4HR PRN PRN Reason: cervical ripening Last Admin: 01/18/20 13:53 Dose: 25 mcg Documented by: Misoprostol (Cytotec) 25 mcg VAG Q4HR PRN PRN Reason: cervical ripening Last Admin: 01/18/20 13:51 Dose: 25 mcg Documented by: Misoprostol (Cytotec) 1,000 mcg RECTAL ONETIME PRN PRN Reason: excessive bleeding Nalbuphine HCl (Nubain) 10 mg IVPUSH Q1H PRN PRN Reason: Pain (severe 7-10) Ondansetron HCl (Zofran) 4 mg IVPUSH Q4H PRN PRN Reason: Nausea/Vomiting Oxycodone/Acetaminophen (Percocet 325-5 Mg) 1 tab PO Q4H PRN PRN Reason: Pain (moderate 4-6) Oxycodone/Acetaminophen (Percocet 325-5 Mg) 2 tab PO Q4H PRN PRN Reason: Pain (moderate 4-6) Oxytocin (Pitocin) 10 unit IM ASDIRECTED PRN PRN Reason: Excessive Vaginal Bleeding Sodium Chloride (Saline Flush) 10 ml FLUSH ASDIRECTED PRN PRN Reason: Keep Vein Open Sodium Chloride (Saline Flush) 2.5 ml FLUSH ASDIRECTED PRN PRN Reason: Keep Vein Open Sodium Chloride (Normal Saline) 10 ml IV ASDIRECTED PRN PRN Reason: IV Use Sterile Water (Sterile Water For Irrigation) 1,000 ml IRR ASDIRECTED PRN PRN Reason: delivery Terbutaline Sulfate (Brethine) 0.25 mg SUBCUT ASDIRECTED PRN PRN Reason: Tacysystole Discontinued Medications Cefazolin Sodium (Ancef) Confirm Administered Dose 2 gm .ROUTE .STK-MED ONE Stop: 01/19/20 00:30 Fentanyl (Sublimaze) Confirm Administered Dose 200 mcg .ROUTE .STK-MED ONE Stop: 01/18/20 05:02 Fentanyl (Sublimaze) Confirm Administered Dose 100 mcg .ROUTE .STK-MED ONE Stop: 01/18/20 09:12 Fentanyl (Sublimaze) Confirm Administered Dose 100 mcg .ROUTE .STK-MED ONE Stop: 01/18/20 20:10 Fentanyl (Sublimaze) Confirm Administered Dose 100 mcg .ROUTE .STK-MED ONE Stop: 01/18/20 20:21 Fentanyl (Sublimaze) Confirm Administered Dose 100 mcg .ROUTE .STK-MED ONE Stop: 01/18/20 23:26 Fentanyl (Sublimaze) Confirm Administered Dose 100 mcg .ROUTE .STK-MED ONE Stop: 01/19/20 00:18 Ropivacaine (Naropin 0.2%) Confirm Administered Dose 100 mls @ as directed .ROUTE .STK-MED ONE Stop: 01/18/20 05:02 Fentanyl/Bupivacaine HCl (Fentanyl/Bupivacaine/Ns 2 Mcg-0.125% 250 Ml) Confirm A dministered Dose 250 mls @ as directed .ROUTE .STK-MED ONE Stop: 01/18/20 09:12 Ropivacaine (Naropin 0.2%) Confirm Administered Dose 100 mls @ as directed .ROUTE .STK-MED ONE Stop: 01/18/20 20:21 Morphine Sulfate (Duramorph Pf) Confirm Administered Dose 10 mg .ROUTE .STK-MED ONE Stop: 01/19/20 00:47 Propofol (Diprivan 20 Ml) Confirm Administered Dose 200 mg .ROUTE .STK-MED ONE Stop: 01/19/20 00:27 - Infant Interaction Infant Disposition, : Not Applicable Infant Feeding: Other (see below) (Exclusively pumping colostrum; in NICU at [facility]) Support Person: Significant Other - Recovery Exam Fundal Tone: Firm Fundal Level: At Umbilicus Fundal Placement: Midline Lochia Amount: Moderate Lochia Color: Rubra/Red Perineum Description: Intact, Minimal Bruising/Swelling Episiotomy/Laceration: None Bladder Status: Nonpalpable, Indwelling Catheter in Place Urinary Elimination: Indwelling Catheter - Exam Quality Assessment: Supplemental Oxygen General: Alert, Oriented, Cooperative HEENT: Pupils Equal, Pupils Reactive, Mucous Membr. Moist/[place] Neck: Supple Lungs: Clear to Auscultation, Normal Respiratory Effort Cardiovascular: Regular Rate, Regular Rhythm GI/Abdominal Exam: Normal Bowel Sounds, Soft, Non-Tender, No Organomegaly, No Distention Extremities: Normal Inspection, Normal Range of Motion, Non-Tender, No Pedal Edema, Normal Capillary Refill Skin: Warm, Dry, Intact Wound/Incisions: Dressing Dry and Intact, Drainage Neurological: No New Focal Deficit Psy/Mental Status: Alert, Normal Affect, Normal Mood - Problem List & Annotations (1) Delivery by section SNOMED Code(s): 319959755 Code(s): SOQ7875 - Status: Acute Priority: High Current Visit: Yes (2) Umbilical cord prolapse in labor and delivery, delivered SNOMED Code(s): 625348827, 943512511 Code(s): O69.0XX0 - LABOR AND DELIVERY COMPLICATED BY PROLAPSE OF CORD, UNSP Status: Acute Priority: High Current Visit: Yes (3) Lactating mother SNOMED Code(s): 612032777, 859103969 Code(s): Z39.1 - ENCOUNTER FOR CARE AND EXAMINATION OF LACTATING MOTHER Status: Acute Priority: High Current Visit: Yes - Problem List Review Problem List Initiated/Reviewed/Updated: Yes - Plan Plan:: Fatimah is a 24 yo PPD0 S/P primary LTCS to term NBF due to sudden spontaneous umbilical cord prolapse during second stage with commencement of pushing. O pos, RI, GBS negative. COVID negative. H/P obesity. Hemodynamically stable, afebrile. Patient is exclusively pumping well; intubated transferred to [facility] today at 6 am for NICU support. Patient reports she is eating and hydrating independently; has not ambulated at this time; olmedo catheter in place draining clear yellow urine. LTCS dressing intact with KATHERINE dressing, approximated, small old blood noted to dressing. Patient denies any problems or concerns at this time except mild-moderate intermittent uterine cramping relieved with Tylenol and Ibuprofen. Patient reports small to moderate rubra lochia with no clots. Plan to ambulate patient 3-5 times daily; RN instructed to remove olmedo catheter once patient is ambulating. Plan to D/C patient home in am if goals are reached. Dr. Mccollum notified and agreeable with POC.
[2020-01-19] MEDS: Docusate Sodium 100 MG Cap PO SCH (20:06)
[2020-01-20] MEDS: Ketorolac 30 MG/ML SDV IVPUSH SCH (01:35)
[2020-01-20] MEDS: Acetaminophen/oxyCODONE 325-5 MG Tab PO PRN ×4 (05:33→20:39)
--- NOTE | 2020-01-20 07:30 | PCM48HPAN ---
Post Anesthesia Note - EVALUATION WITHIN 48HRS OF ANESTHETIC Vital Signs in Normal Range: Yes Patient Participated in Evaluation: Yes Respiratory Function Stable: Yes Airway Patent: Yes Cardiovascular Function Stable: Yes Hydration Status Stable: Yes Pain Control Satisfactory: Yes Nausea and Vomiting Control Satisfactory: Yes Mental Status Recovered: Yes Vital Signs: Last Vital Signs Temp 36.4 C 01/20/20 05:30 Pulse 88 01/20/20 05:30 Resp 17 01/20/20 05:30 BP 119/76 01/20/20 05:30 Pulse Ox 97 01/20/20 05:30
[2020-01-20] MEDS: Docusate Sodium 100 MG Cap PO SCH ×2 (08:18)
[2020-01-20] MEDS: Ibuprofen 800 MG Tab PO PRN ×2 (08:19→18:32)
--- NOTE | 2020-01-20 17:09 | PCM.PNPP ---
- General Info Date of Service: 01/20/20 Admission Dx/Problem (Free Text): Patient Status Order with Admit Dx/Problem 01/17/20 19:17 Patient Status [ADT] Routine Admission Diagnosis/Problem Admission Diagnosis/Problem Fatimah is a 24 yo PPD1 S/P primary LTCS to term NBF due to sudden spontaneous umbilical cord prolapse during second stage with commencement of pushing. O pos, RI, GBS negative. COVID negative. H/P obesity. Hemodynamically stable, afebrile. Patient is exclusively pumping well; in [facility] NICU. Patient reports she is eating, hydrating, ambulating, and voiding independently. LTCS dressing intact with KATHERINE dressing, approximated, small old blood noted to dressing; abdominal binder in place. Patient denies any problems or concerns at this time except moderate-severe intermittent uterine cramping and generalized soreness alleviated with Percocet and ibuprofen. Patient reports small to moderate rubra lochia with no clots. Functional Status: Reports: Pain Controlled - Review of Systems General: Reports: No Symptoms HEENT: Reports: No Symptoms Pulmonary: Reports: No Symptoms Cardiovascular: Reports: No Symptoms Gastrointestinal: Reports: No Symptoms Genitourinary: Reports: No Symptoms Musculoskeletal: Reports: No Symptoms Skin: Reports: No Symptoms Neurological: Reports: No Symptoms Psychiatric: Reports: No Symptoms - General Info Date of Service: 01/20/20 - Patient Data Vital Signs - Most Recent: Last Vital Signs Temp 97.9 F 01/20/20 12:00 Pulse 100 01/20/20 12:00 Resp 20 01/20/20 12:00 BP 127/75 01/20/20 12:00 Pulse Ox 97 01/20/20 12:00 Weight - Most Recent: 246 lb 0.01 oz I&O - Last 24 Hours: Intake & Output 01/20/20 01/20/20 01/20/20 06:59 14:59 22:59 Output Total 2300 Balance -2300 Lab Results - Last 24 Hours: Laboratory Results - last 24 hr 01/20/20 01/20/20 Range/Units 05:15 12:30 Hgb 8.8 L (12.0-16.0) g/dL Hct 29.1 L (36.0-46.0) % Urine Color PINK Urine Appearance SLT CLOUDY Urine pH 6.0 (5.0-8.0) Ur Specific [place] <= 1.005 (1.001-1.035) Urine Protein NEGATIVE (NEGATIVE) mg/dL Urine Glucose (UA) NEGATIVE (NEGATIVE) mg/dL Urine Ketones NEGATIVE (NEGATIVE) mg/dL Urine Occult Blood LARGE H (NEGATIVE) Urine Nitrite NEGATIVE (NEGATIVE) Urine Bilirubin NEGATIVE (NEGATIVE) Urine Urobilinogen 0.2 (<2.0) EU/dL Ur Leukocyte Esterase SMALL H (NEGATIVE) Med Orders - Current: Current Medications Bisacodyl (Dulcolax) 10 mg RECTAL ONETIME PRN PRN Reason: Constipation Butorphanol Tartrate (Stadol) 1 mg IVPUSH Q1H PRN PRN Reason: Pain Last Admin: 01/18/20 05:44 Dose: 1 mg Documented by: Carboprost Tromethamine (Hemabate Ds) 250 mcg IM ASDIRECTED PRN PRN Reason: Post Hemorrhage Diphenhydramine HCl (Benadryl) 25 mg IVPUSH Q6H PRN PRN Reason: Itching or Nausea Docusate Sodium (Colace) 100 mg PO BID [facility] Last Admin: 01/20/20 08:18 Dose: 100 mg Documented by: Emollient Ointment (Lansinoh Hpa) 0 gm TOP ASDIRECTED PRN PRN Reason: Sore Nipples Lactated Ringer's (Ringers, Lactated) 1,000 mls @ 150 mls/hr IV ASDIRECTED [facility] Last Admin: 01/18/20 20:04 Dose: 150 mls/hr Documented by: Oxytocin/Sodium Chloride (Oxytocin 30 Unit/500 Ml-Ns) 30 unit in 500 mls @ 500 mls/hr IV TITRATE [facility] Tranexamic Acid 1,000 mg/ (Sodium Chloride) 110 mls @ 660 mls/hr IV ONETIME PRN PRN Reason: Bleeding Oxytocin/Sodium Chloride (Oxytocin 30 Unit/500 Ml-Ns) 30 unit in 500 mls @ 2 mls/hr IV TITRATE [facility]; Protocol Last Titration: 01/18/20 13:00 Dose: 0 munits/min, 0 mls/hr Documented by: Lactated Ringer's (Ringers, Lactated) 1,000 mls @ 125 mls/hr IV ASDIRECTED [facility] Tranexamic Acid 1,000 mg/ (Sodium Chloride) 110 mls @ 660 mls/hr IV ONETIME PRN PRN Reason: Bleeding Ibuprofen (Motrin) 800 mg PO Q8H PRN PRN Reason: mild pain or fever Last Admin: 01/20/20 08:19 Dose: 800 mg Documented by: Lidocaine HCl (Xylocaine 1%) 50 ml INJECT ONETIME PRN PRN Reason: Laceration repair Methylergonovine Maleate (Methergine) 0.2 mg IM ASDIRECTED PRN PRN Reason: Post Hemorrhage Methylergonovine Maleate (Methergine) 0.2 mg IM ONETIME PRN PRN Reason: Excessive Vaginal Bleeding Misoprostol (Cytotec) 200 mcg PO ONETIME PRN PRN Reason: Post Hemorrhage Misoprostol (Cytotec) 25 mcg PO Q4HR PRN PRN Reason: cervical ripening Last Admin: 01/18/20 13:53 Dose: 25 mcg Documented by: Misoprostol (Cytotec) 25 mcg VAG Q4HR PRN PRN Reason: cervical ripening Last Admin: 01/18/20 13:51 Dose: 25 mcg Documented by: Misoprostol (Cytotec) 1,000 mcg RECTAL ONETIME PRN PRN Reason: excessive bleeding Nalbuphine HCl (Nubain) 10 mg IVPUSH Q1H PRN PRN Reason: Pain (severe 7-10) Ondansetron HCl (Zofran) 4 mg IVPUSH Q4H PRN PRN Reason: Nausea/Vomiting Oxycodone/Acetaminophen (Percocet 325-5 Mg) 1 tab PO Q4H PRN PRN Reason: Pain (moderate 4-6) Oxycodone/Acetaminophen (Percocet 325-5 Mg) 2 tab PO Q4H PRN PRN Reason: Pain (moderate 4-6) Last Admin: 01/20/20 16:34 Dose: 2 tab Documented by: Oxytocin (Pitocin) 10 unit IM ASDIRECTED PRN PRN Reason: Excessive Vaginal Bleeding Sodium Chloride (Saline Flush) 10 ml FLUSH ASDIRECTED PRN PRN Reason: Keep Vein Open Sodium Chloride (Saline Flush) 2.5 ml FLUSH ASDIRECTED PRN PRN Reason: Keep Vein Open Sodium Chloride (Normal Saline) 10 ml IV ASDIRECTED PRN PRN Reason: IV Use Sterile Water (Sterile Water For Irrigation) 1,000 ml IRR ASDIRECTED PRN PRN Reason: delivery Terbutaline Sulfate (Brethine) 0.25 mg SUBCUT ASDIRECTED PRN PRN Reason: Tacysystole Discontinued Medications Cefazolin Sodium (Ancef) Confirm Administered Dose 2 gm .ROUTE .STK-MED ONE Stop: 01/19/20 00:30 Fentanyl (Sublimaze) Confirm Administered Dose 200 mcg .ROUTE .STK-MED ONE Stop: 01/18/20 05:02 Fentanyl (Sublimaze) Confirm Administered Dose 100 mcg .ROUTE .STK-MED ONE Stop: 01/18/20 09:12 Fentanyl (Sublimaze) Confirm Administered Dose 100 mcg .ROUTE .STK-MED ONE Stop: 01/18/20 20:10 Fentanyl (Sublimaze) Confirm Administered Dose 100 mcg .ROUTE .STK-MED ONE Stop: 01/18/20 20:21 Fentanyl (Sublimaze) Confirm Administered Dose 100 mcg .ROUTE .STK-MED ONE Stop: 01/18/20 23:26 Fentanyl (Sublimaze) Confirm Administered Dose 100 mcg .ROUTE .STK-MED ONE Stop: 01/19/20 00:18 Ropivacaine (Naropin 0.2%) Confirm Administered Dose 100 mls @ as directed .ROUTE .STK-MED ONE Stop: 01/18/20 05:02 Fentanyl/Bupivacaine HCl (Fentanyl/Bupivacaine/Ns 2 Mcg-0.125% 250 Ml) Confirm Administered Dose 250 mls @ as directed .ROUTE .STK-MED ONE Stop: 01/18/20 09:12 Ropivacaine (Naropin 0.2%) Confirm Administered Dose 100 mls @ as directed .ROUTE .STK-MED ONE Stop: 01/18/20 20:21 Ketorolac Tromethamine (Toradol) 30 mg IVPUSH Q6H [facility] Stop: 01/20/20 01:31 Last Admin: 01/20/20 01:35 Dose: 30 mg Documented by: Morphine Sulfate (Duramorph Pf) Confirm Administered Dose 10 mg .ROUTE .STK-MED ONE Stop: 01/19/20 00:47 Propofol (Diprivan 20 Ml) Confirm Administered Dose 200 mg .ROUTE .STK-MED ONE Stop: 01/19/20 00:27 - Infant Interaction Infant Disposition, : Not Applicable Feeding: Other (see below) (Exclusively pumping colostrum; in NICU at [facility]) Support Person: Significant Other - Recovery Exam Fundal Tone: Firm Fundal Level: 1 Fingerbreadths Below Umbilicus Fundal Placement: Midline Lochia Amount: Small Lochia Color: Rubra/Red Perineum Description: Intact, Minimal Bruising/Swelling Episiotomy/Laceration: None Bladder Status: Nonpalpable, Voiding Urinary Elimination: Indwelling Catheter - Exam General: Alert, Oriented, Cooperative, No Acute Distress HEENT: Pupils Equal, Pupils Reactive, Mucous Membr. Moist/[place] Neck: Supple Lungs: Clear to Auscultation, Normal Respiratory Effort Cardiovascular: Regular Rate, Regular Rhythm GI/Abdominal Exam: Normal Bowel Sounds, Soft, Non-Tender, No Organomegaly, No Distention Extremities: Normal Inspection, Normal Range of Motion, Non-Tender, Normal Capillary Refill, Pedal Edema (Non-pitting BLE) Skin: Warm, Dry, Intact Wound/Incisions: Dressing Dry and Intact, No Drainage Neurological: No New Focal Deficit Psy/Mental Status: Alert, Normal Affect, Normal Mood - Problem List & Annotations (1) Delivery by section SNOMED Code(s): 528491420 Code(s): NMS3669 - Status: Acute Priority: High Current Visit: Yes (2) Umbilical cord prolapse in labor and delivery, delivered SNOMED Code(s): 772469686, 675262800 Code(s): O69.0XX0 - LABOR AND DELIVERY COMPLICATED BY PROLAPSE OF CORD, UNSP Status: Acute Priority: High Current Visit: Yes (3) Lactating mother SNOMED Code(s): 800662755, 239664180 Code(s): Z39.1 - ENCOUNTER FOR CARE AND EXAMINATION OF LACTATING MOTHER Status: Acute Priority: High Current Visit: Yes - Problem List Review Problem List Initiated/Reviewed/Updated: Yes - Plan Plan:: Continue ambulating 3-5 times daily. Encourage adequate hydration. Plan to keep patient until am to ensure pain control is adequate. Plan D/C home in am. Dr. Mccollum notified and agreeable with POC.
[2020-01-21] MEDS: Acetaminophen/oxyCODONE 325-5 MG Tab PO PRN ×4 (00:55→16:05)
[2020-01-21] MEDS: Ibuprofen 800 MG Tab PO PRN ×2 (04:14→12:33)
--- NOTE | 2020-01-21 07:27 | OR ---
SURGEON: Richie Mccollum MD DATE OF PROCEDURE: 01/19/2020 PREOPERATIVE DIAGNOSES: Intrauterine , term, emergency section for prolapsed cord. POSTOPERATIVE DIAGNOSES: Intrauterine , term, emergency section for prolapsed cord. OPERATION PERFORMED: Emergency section because of prolapsed umbilical cord. PRIMARY SURGEON: Richie Mccollum MD REGULATORY COORDINATOR: Yuliana Chiu CNM ANESTHESIA: Epidural, Mr. Jose Robert. ESTIMATED BLOOD LOSS: 850 mL. COMPLICATIONS: None. FINDINGS: Female fetus. score and weight are not available at the time of the dictation. INDICATIONS FOR SURGERY: This patient is 24. She is followed in our office. She is admitted for elective induction. We used Cook catheter to help with the induction and Pitocin. The patient responded to that. At 4 cm, she had epidural anesthesia, and she continued to respond, and she had an artificial rupture of membrane of clear fluid. The patient later on to progress to 8 to 9 cm. The ore grader who was on-call, Yuliana Chiu, was notified, and she was in the Labor and Delivery anticipating vaginal delivery. However, when the patient was to start trial pushing, the labor nurses noted prolapsing of the umbilical cord and several loops of the umbilical cord were in the vagina. After School Tutor was notified and immediately hand was used to elevate the head and to hold the cord, and I was notified. I was immediately rushed to the hospital, and by the time I arrived to the hospital, Anesthesia was moving the patient to the operative room. The Anesthesia personnel was in the hospital and the Labor and Delivery started opening for emergency section, and we proceeded with the emergency section. PROCEDURE IN DETAIL: The patient brought to the OR immediately. When I arrived, I helped move the patient to the operating room. She had adequate level of epidural anesthesia and a quick prep of the abdomen was done and draping was done. Low transverse Pfannenstiel skin incision was done. Zena fascia and rectus fascia were opened in direction of the incision and then peritoneal cavity was entered and a low transverse uterine incision was done and extended manually with the hand. Fetus was delivered without any problem. The cord was clamped, and the fetus was handed to the resuscitating team headed by the progress worker and the respiratory therapist who were present at the time of the delivery. The placenta delivered spontaneous, complete, and intact without any problem and repair of the lower uterine segment was done with 2-0 Vicryl continuous interlocking in two layers. Peritoneal cavity was evacuated completely from all blood and blood clot and closed with 2-0 Vicryl continuous. The rectus fascia was closed with #1 PDS double-strand continuous, Zena fascia with 3-0 Vicryl continuous, and skin closed with 3-0 on a Rony needle in a subcuticular fashion and Dermabond. Instrument and sponge count was correct. The patient tolerated the procedure well, went to recovery room in stable general condition. KEVYN / MAX /[id number]
--- NOTE | 2020-01-21 08:05 | PCM.DCSUM1 ---
Discharge Summary - Hospital Course Free Text/Narrative:: Fatimah is a 24 yo PPD2 S/P primary LTCS to term NBF due to sudden spontaneous umbilical cord prolapse during second stage with commencement of pushing. O pos, RI, GBS negative. COVID negative. H/P obesity. Hemodynamically stable, afebrile. Patient is exclusively pumping well; in [facility] NICU. Patient reports she is eating, hydrating, ambulating, and voiding independently. LTCS KATHERINE dressing dressing clean, dry, intact, approximated, small old blood noted to dressing; abdominal binder in place. Patient denies any problems or concerns at this time except moderate generalized soreness alleviated with Percocet and ibuprofen. Patient reports small to moderate rubra lochia with no clots. Patient verbalizes readiness to be discharged home today. Diagnosis: Stroke: No - Discharge Data Discharge Date: 01/21/20 Discharge Disposition: Home, Self-Care 01 Condition: Good - Referral to Home Health Primary Care Physician: PCP None - Discharge Diagnosis/Problem(s) (1) Delivery by section SNOMED Code(s): 426941560 ICD Code: [id number] - Status: Acute Priority: High Current Visit: Yes (2) Umbilical cord prolapse in labor and delivery, delivered SNOMED Code(s): 226699899, 589838612 ICD Code: O69.0XX0 - LABOR AND DELIVERY COMPLICATED BY PROLAPSE OF CORD, UNSP Status: Acute Priority: High Current Visit: Yes (3) Lactating mother SNOMED Code(s): 930088267, 771195643 ICD Code: Z39.1 - ENCOUNTER FOR CARE AND EXAMINATION OF LACTATING MOTHER Status: Acute Priority: High Current Visit: Yes - Patient Summary/Data Operative Procedure(s) Performed: emergency C/section. - Patient Instructions Diet: Usual Diet as Tolerated, Regular Diet as Tolerated, Drink 8-10+ Glasses/Day Activity: As Tolerated, No Strenuous Activities Driving: May Drive Today Driving, Other: Sitz baths for perineal comfort Showering/Bathing: May Shower Wound/Incision Care: Keep Operative Site/Wound Site Clean and Dry, Do NOT Change Dressing Notify Provider of: Fever, Increased Pain, Swelling and Redness, Drainage, Nausea and/or Vomiting - Discharge Plan *PRESCRIPTION DRUG MONITORING PROGRAM REVIEWED*: No *COPY OF PRESCRIPTION DRUG MONITORING REPORT IN PATIENT EDWIN: No Prescriptions/Med Rec: Docusate Sodium [Colace] 100 mg PO BID #60 cap Ibuprofen [Motrin] 800 mg PO Q8H PRN #90 tablet PRN Reason: mild pain or fever Acetaminophen/oxyCODONE [Percocet 325-5 MG] 1 tab PO Q4H PRN #30 tablet PRN Reason: Pain (Moderate 4-6) Home Medications: Home Meds Vit37/Iron/Folic Acid [Prenata] 1 mg PO DAILY 12/20/19 [History] Acetaminophen/oxyCODONE [Percocet 325-5 MG] 1 tab PO Q4H PRN #30 tablet 01/21/20 [Rx] Docusate Sodium [Colace] 100 mg PO BID #60 cap 01/21/20 [Rx] Ibuprofen [Motrin] 800 mg PO Q8H PRN #90 tablet 01/21/20 [Rx] Oxygen Therapy Mode: Room Air Patient Handouts: Acetaminophen; Oxycodone tablets, Ibuprofen tablets and capsules, Baby Blues, Care After Delivery Referrals: [facility] [Outside] Yuliana Chiu CNM [Mid-] - 02/28/20 1:00 pm - Discharge Summary/Plan Comment DC Time >30 min.: Yes - General Info Date of Service: 01/21/20 Admission Dx/Problem (Free Text: Patient Status Order with Admit Dx/Problem 01/17/20 19:17 Patient Status [ADT] Routine Admission Diagnosis/Problem Admission Diagnosis/Problem Fatimah is a 24 yo PPD1 S/P primary LTCS to term NBF due to sudden spontaneous umbilical cord prolapse during second stage with commencement of pushing. O pos, RI, GBS negative. COVID negative. H/P obesity. Hemodynamically stable, afebrile. Patient is exclusively pumping well; in [facility] NICU. Patient reports she is eating, hydrating, ambulating, and voiding independently. LTCS dressing intact with KATHERINE dressing, approximated, small old blood noted to dressing; abdominal binder in place. Patient denies any problems or concerns at this time except moderate-severe intermittent uterine cramping and generalized soreness alleviated with Percocet and ibuprofen. Patient reports small to moderate rubra lochia with no clots. Functional Status: Reports: Pain Controlled - Review of Systems General: Reports: No Symptoms HEENT: Reports: No Symptoms Pulmonary: Reports: No Symptoms Cardiovascular: Reports: No Symptoms Gastrointestinal: Reports: No Symptoms Genitourinary: Reports: No Symptoms Musculoskeletal: Reports: No Symptoms Skin: Reports: No Symptoms Neurological: Reports: No Symptoms Psychiatric: Reports: No Symptoms - Patient Data Vitals - Most Recent: Last Vital Signs Temp 97.8 F 01/21/20 04:18 Pulse 100 01/21/20 04:18 Resp 17 01/21/20 04:18 BP 132/86 01/21/20 04:18 Pulse Ox 99 01/21/20 04:18 Weight - Most Recent: 246 lb 0.01 oz Lab Results - Last 24 hrs: Laboratory Results - last 24 hr 01/20/20 Range/Units 12:30 Urine Color PINK Urine Appearance SLT CLOUDY Urine pH 6.0 (5.0-8.0) Ur Specific [place] <= 1.005 (1.001-1.035) Urine Protein NEGATIVE (NEGATIVE) mg/dL Urine Glucose (UA) NEGATIVE (NEGATIVE) mg/dL Urine Ketones NEGATIVE (NEGATIVE) mg/dL Urine Occult Blood LARGE H (NEGATIVE) Urine Nitrite NEGATIVE (NEGATIVE) Urine Bilirubin NEGATIVE (NEGATIVE) Urine Urobilinogen 0.2 (<2.0) EU/dL Ur Leukocyte Esterase SMALL H (NEGATIVE) Med Orders - Current: Current Medications Bisacodyl (Dulcolax) 10 mg RECTAL ONETIME PRN PRN Reason: Constipation Butorphanol Tartrate (Stadol) 1 mg IVPUSH Q1H PRN PRN Reason: Pain Last Admin: 01/18/20 05:44 Dose: 1 mg Documented by: Carboprost Tromethamine (Hemabate Ds) 250 mcg IM ASDIRECTED PRN PRN Reason: Post Hemorrhage Diphenhydramine HCl (Benadryl) 25 mg IVPUSH Q6H PRN PRN Reason: Itching or Nausea Docusate Sodium (Colace) 100 mg PO BID [facility] Last Admin: 01/20/20 08:18 Dose: 100 mg Documented by: Emollient Ointment (Lansinoh Hpa) 0 gm TOP ASDIRECTED PRN PRN Reason: Sore Nipples Lactated Ringer's (Ringers, Lactated) 1,000 mls @ 150 mls/hr IV ASDIRECTED [facility] Last Admin: 01/18/20 20:04 Dose: 150 mls/hr Documented by: Oxytocin/Sodium Chloride (Oxytocin 30 Unit/500 Ml-Ns) 30 unit in 500 mls @ 500 mls/hr IV TITRATE [facility] Tranexamic Acid 1,000 mg/ (Sodium Chloride) 110 mls @ 660 mls/hr IV ONETIME PRN PRN Reason: Bleeding Oxytocin/Sodium Chloride (Oxytocin 30 Unit/500 Ml-Ns) 30 unit in 500 mls @ 2 mls/hr IV TITRATE [facility]; Protocol Last Titration: 01/18/20 13:00 Dose: 0 munits/min, 0 mls/hr Documented by: Lactated Ringer's (Ringers, Lactated) 1,000 mls @ 125 mls/hr IV ASDIRECTED [facility] Tranexamic Acid 1,000 mg/ (Sodium Chloride) 110 mls @ 660 mls/hr IV ONETIME PRN PRN Reason: Bleeding Ibuprofen (Motrin) 800 mg PO Q8H PRN PRN Reason: mild pain or fever Last Admin: 01/21/20 04:14 Dose: 800 mg Documented by: Lidocaine HCl (Xylocaine 1%) 50 ml INJECT ONETIME PRN PRN Reason: Laceration repair Methylergonovine Maleate (Methergine) 0.2 mg IM ASDIRECTED PRN PRN Reason: Post Hemorrhage Methylergonovine Maleate (Methergine) 0.2 mg IM ONETIME PRN PRN Reason: Excessive Vaginal Bleeding Misoprostol (Cytotec) 200 mcg PO ONETIME PRN PRN Reason: Post Hemorrhage Misoprostol (Cytotec) 25 mcg PO Q4HR PRN PRN Reason: cervical ripening Last Admin: 01/18/20 13:53 Dose: 25 mcg Documented by: Misoprostol (Cytotec) 25 mcg VAG Q4HR PRN PRN Reason: cervical ripening Last Admin: 01/18/20 13:51 Dose: 25 mcg Documented by: Misoprostol (Cytotec) 1,000 mcg RECTAL ONETIME PRN PRN Reason: excessive bleeding Nalbuphine HCl (Nubain) 10 mg IVPUSH Q1H PRN PRN Reason: Pain (severe 7-10) Ondansetron HCl (Zofran) 4 mg IVPUSH Q4H PRN PRN Reason: Nausea/Vomiting Oxycodone/Acetaminophen (Percocet 325-5 Mg) 1 tab PO Q4H PRN PRN Reason: Pain (moderate 4-6) Oxycodone/Acetaminophen (Percocet 325-5 Mg) 2 tab PO Q4H PRN PRN Reason: Pain (moderate 4-6) Last Admin: 01/21/20 00:55 Dose: 2 tab Documented by: Oxytocin (Pitocin) 10 unit IM ASDIRECTED PRN PRN Reason: Excessive Vaginal Bleeding Sodium Chloride (Saline Flush) 10 ml FLUSH ASDIRECTED PRN PRN Reason: Keep Vein Open Sodium Chloride (Saline Flush) 2.5 ml FLUSH ASDIRECTED PRN PRN Reason: Keep Vein Open Sodium Chloride (Normal Saline) 10 ml IV ASDIRECTED PRN PRN Reason: IV Use Sterile Water (Sterile Water For Irrigation) 1,000 ml IRR ASDIRECTED PRN PRN Reason: delivery Terbutaline Sulfate (Brethine) 0.25 mg SUBCUT ASDIRECTED PRN PRN Reason: Tacysystole Discontinued Medications Cefazolin Sodium (Ancef) Confirm Administered Dose 2 gm .ROUTE .STK-MED ONE Stop: 01/19/20 00:30 Fentanyl (Sublimaze) Confirm Administered Dose 200 mcg .ROUTE .STK-MED ONE Stop: 01/18/20 05:02 Fentanyl (Sublimaze) Confirm Administered Dose 100 mcg .ROUTE .STK-MED ONE Stop: 01/18/20 09:12 Fentanyl (Sublimaze) Confirm Administered Dose 100 mcg .ROUTE .STK-MED ONE Stop: 01/18/20 20:10 Fentanyl (Sublimaze) Confirm Administered Dose 100 mcg .ROUTE .STK-MED ONE Stop: 01/18/20 20:21 Fentanyl (Sublimaze) Confirm Administered Dose 100 mcg .ROUTE .STK-MED ONE Stop: 01/18/20 23:26 Fentanyl (Sublimaze) Confirm Administered Dose 100 mcg .ROUTE .STK-MED ONE Stop: 01/19/20 00:18 Ropivacaine (Naropin 0.2%) Confirm Administered Dose 100 mls @ as directed .ROUTE .STK-MED ONE Stop: 01/18/20 05:02 Fentanyl/Bupivacaine HCl (Fentanyl/Bupivacaine/Ns 2 Mcg-0.125% 250 Ml) Confirm Administered Dose 250 mls @ as directed .ROUTE .STK-MED ONE Stop: 01/18/20 09:12 Ropivacaine (Naropin 0.2%) Confirm Administered Dose 100 mls @ as directed .ROUTE .STK-MED ONE Stop: 01/18/20 20:21 Ketorolac Tromethamine (Toradol) 30 mg IVPUSH Q6H [facility] Stop: 01/20/20 01:31 Last Admin: 01/20/20 01:35 Dose: 30 mg Documented by: Morphine Sulfate (Duramorph Pf) Confirm Administered Dose 10 mg .ROUTE .STK-MED ONE Stop: 01/19/20 00:47 Propofol (Diprivan 20 Ml) Confirm Administered Dose 200 mg .ROUTE .STK-MED ONE Stop: 01/19/20 00:27 - Exam General: Reports: Alert, Oriented, Cooperative, No Acute Distress HEENT: Reports: Pupils Equal, Pupils Reactive, Mucous Membr. Moist/[place] Neck: Reports: Supple Lungs: Reports: Clear to Auscultation, Normal Respiratory Effort Cardiovascular: Reports: Regular Rate, Regular Rhythm GI/Abdominal Exam: Normal Bowel Sounds, Soft, Non-Tender, No Organomegaly, No Distention, No Mass (Female) Exam: Normal External Exam, Enlarged Uterus ( uterus), Vaginal Bleeding (Moderate vaginal bleeding, no large clots) Rectal (Female) Exam: Deferred Back Exam: Reports: Normal Inspection, Full Range of Motion Extremities: Normal Inspection, Normal Range of Motion, Non-Tender, No Pedal Edema, Normal Capillary Refill Skin: Reports: Warm, Dry, Intact Wound/Incisions: Reports: Dressing Dry and Intact Neurological: Reports: No New Focal Deficit Psy/Mental Status: Reports: Alert, Normal Affect, Normal Mood
[2020-01-21] MEDS: Docusate Sodium 100 MG Cap PO SCH ×2 (08:10→09:29)
== END 2020-01-21 16:40 | disposition home or self-care (01) | DRG 788 ==
LOC: MW.OBCHECK 17:53 → MW.OB 17:53 → MW.OBCHECK 19:17 → MW.OB 19:17 → OBSVTOIN 01-19 00:26 → MW.OB 01-19 06:52
PROVIDERS: ADMIT Obstetrics & Gynecology Obstetrics; ATTEND Obstetrics & Gynecology Obstetrics
PROC: 10D00Z1 Extraction of Products of Conception, Low, Open Approach (ICD-10-PCS; principal; 2020-01-19)
DX: O69.0XX0 Labor and delivery complicated by prolapse of cord, not applicable or unspecified (principal); N81.4 Uterovaginal prolapse, unspecified; Z3A.39 39 weeks gestation of pregnancy; Z37.0 Single live birth; Z20.828 Contact with and (suspected) exposure to other viral communicable diseases; O99.214 Obesity complicating childbirth; E66.9 Obesity, unspecified; Z91.018 Allergy to other foods; Z79.82 Long term (current) use of aspirin; Z90.89 Acquired absence of other organs
CPT/HCPCS: 01967; 01968; 36415; 51702; 59025; 81003; 85014; 85018; 85025; 85027; 86592; 86850; 86900; 86901; 88307; A9270-GY; J0595; J0690; J1885; J2270; J2590; J2704; J2795; J3010; J7120; U0002

== ENCOUNTER 2020-06-05 22:05 | Emergency (ER) | payer MEDICAID ==
[2020-06-05] MEDS ORDERED: Ketorolac 15 MG/ML SDV IVPUSH STA (22:40)
[2020-06-05] MEDS ORDERED: Sodium Chloride 0.9% 10 ML Syringe FLUSH PRN (22:40)
[2020-06-05] MEDS ORDERED: Sodium Chloride 0.9% 2.5 ML Syringe FLUSH PRN (22:40)
[2020-06-05] MEDS ORDERED: Sodium Chloride 0.9% 1,000 ML IV ONE ×2 (22:40→23:35)
[2020-06-05] MEDS ORDERED: Acetaminophen 500 MG Tab PO ONE (22:40)
[2020-06-05] MEDS ORDERED: Ondansetron 4 MG/2 ML SDV IVPUSH ONE (22:41)
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
--- NOTE | 2020-06-05 23:17 | CR ---
Indication: Pain Technique: Chest 1 view Comparison: None Findings/Impression: Cardiovascular and mediastinum: Heart size and vasculature are normal in caliber and appearance. Mediastinum is within normal limits. Lungs and pleural space: Lungs are clear. No sign of infiltrate or mass. No sign of pleural effusion. No pneumothorax. Bones and soft tissues: No significant findings. Dictated by Shaquille Mora MD @ Jun 05 2020 11:15PM Signed by Dr. Shaquille Mora @ Jun 05 2020 11:15PM
[2020-06-05 23:44] LABS: BLOOD UREA NITROGEN,BUN 13 mg/dL (7.0-18.0); CARBON DIOXIDE,CO2 23.9 mmol/L (21.0-32.0); CHLORIDE,CL 101 mmol/L (98-107); GLUCOSE RANDOM 104 mg/dL (74-106); LIPASE 87 U/L (73-393); POTASSIUM,K 3.7 mmol/L (3.5-5.1); SODIUM,NA 136 mmol/L (136-145)
[2020-06-06] MEDS ORDERED: Ketorolac 30 MG/ML SDV IVPUSH ONE (00:20)
--- NOTE | 2020-06-06 00:44 | CT ---
INDICATION: Shortness of breath, elevated D-dimer TECHNIQUE: CT chest pulmonary PE protocol acquired with 100 cc Isovue 370 IV contrast. COMPARISON: Chest radiograph June 05, 2020 FINDINGS: Cardiovascular structures: Suboptimal opacification of the pulmonary arteries. A pulmonary embolism cannot be excluded with this exam. Heart size is normal. No sign of aneurysm in the thoracic aorta. Mediastinum and matt: No mass or adenopathy. Lungs: Clear. Pleura and pericardium: No effusions. Chest wall and axilla: No mass or adenopathy. Upper abdomen: Hepatic steatosis. Bones: No significant findings. IMPRESSION: Suboptimal opacification of the pulmonary arteries. A pulmonary embolism cannot be excluded with this exam. No pneumonia or acute intrathoracic abnormality. Hepatic steatosis. Please note that all CT scans at this facility use dose modulation, iterative reconstruction, and/or weight-based dosing when appropriate to reduce radiation dose to as low as reasonably achievable. Dictated by Dina Phelps MD @ Jun 06 2020 12:37AM Signed by Dr. Dina Phelps @ Jun 06 2020 12:43AM
== END 2020-06-06 02:11 | disposition home or self-care (01) ==
LOC: MW.ED 22:05
DX: B34.9 Viral infection, unspecified (principal); Z91.018 Allergy to other foods; Z91.040 Latex allergy status; Z88.5 Allergy status to narcotic agent; Z88.2 Allergy status to sulfonamides; Z72.0 Tobacco use
CPT/HCPCS: 36415; 71045; 71275; 80053; 81001; 81025; 83605; 83690; 85025; 85379; 96374; 96375; 96376; 99285; A9270; J1885; J2405; J7030

== ENCOUNTER 2020-10-11 01:07 | Emergency (ER) | payer MEDICAID ==
[2020-10-11] MEDS ORDERED: Alum Hydrox/Mag Hydrox/Simeth 15 ML, Lidocaine 2% 5 ML PO ONE ×2 (02:08)
[2020-10-11] MEDS ORDERED: Famotidine 20 MG Tab PO ONE (02:10)
[2020-10-11 02:53] LABS: BLOOD UREA NITROGEN,BUN 15 mg/dL (7.0-18.0); CHLORIDE,CL 104 mmol/L (98-107); GLUCOSE RANDOM 102 mg/dL (74-106); LIPASE 94 U/L (73-393); POTASSIUM,K 3.7 mmol/L (3.5-5.1); SODIUM,NA 143 mmol/L (136-145)
--- NOTE | 2020-10-11 03:34 | CR ---
Indication: Bilateral lower chest pain Technique: Chest 1 view Comparison: Chest x-ray 06/05/2020 Findings/Impression: Cardiovascular and mediastinum: Heart size and vasculature are normal in caliber and appearance. Lungs and pleural space: Lungs are clear. No sign of infiltrate or mass. No sign of pleural effusion. No pneumothorax. Bones and soft tissues: No acute findings. Dictated by Chandra Edmond MD @ 10/11/2020 3:33:[address] Chandra Edmond @ Oct 11 2020 3:33AM
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
== END 2020-10-11 04:02 | disposition home or self-care (01) ==
LOC: MW.ED 01:07
DX: K21.9 Gastro-esophageal reflux disease without esophagitis (principal); T36.95XA Adverse effect of unspecified systemic antibiotic, initial encounter; Z91.018 Allergy to other foods; Z91.040 Latex allergy status; Z88.1 Allergy status to other antibiotic agents
CPT/HCPCS: 36415; 71045; 80053; 81001; 81025; 83690; 85025; 99284; A9270; 99283

== ENCOUNTER 2021-02-23 07:57 | Emergency (ER) | payer MEDICAID ==
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
--- NOTE | 2021-02-23 09:38 | CT ---
Indication: Head injury, possible concussion Technique: Volumetric multidetector CT images of the head were obtained without the administration of low osmolar intravenous contrast. Comparison: None available Findings: There is no intra-axial or extra-axial fluid collection. There is no mass effect or midline shift. The ventricles and sulci are normal in size and position for age. The brain parenchyma is grossly preserved in attenuation and muñiz-white differentiation. The orbits and their contents are grossly within normal limits. The bony calvarium is grossly intact. The paranasal sinuses are clear. The mastoid air cells are well aerated. Impression: No acute intracranial abnormality. Please note that all CT scans at this facility use dose modulation, iterative reconstruction, and/or weight-based dosing when appropriate to reduce radiation dose to as low as reasonably achievable. Dictated by Keyshawn Champagne MD @ 02/23/2021 9:36:45 AM (Electronically Signed)
== END 2021-02-23 10:12 | disposition home or self-care (01) ==
LOC: MW.ED 07:57
DX: S06.0X0A Concussion without loss of consciousness, initial encounter (principal); Z91.018 Allergy to other foods; Z91.040 Latex allergy status; Z88.5 Allergy status to narcotic agent; Z88.2 Allergy status to sulfonamides; W20.8XXA Other cause of strike by thrown, projected or falling object, initial encounter; Y92.009 Unspecified place in unspecified non-institutional (private) residence as the place of occurrence of the external cause
CPT/HCPCS: 70450; 70450-26; 99283-25

== ENCOUNTER 2021-02-28 18:22 | Emergency (ER) | payer MEDICAID ==
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
--- NOTE | 2021-02-28 20:15 | CR ---
INDICATION: Left foot pain. FINDINGS: AP and lateral views of the left foot were obtained. There is no acute fracture or dislocation. The joint space compartments are maintained. IMPRESSION: No acute bone abnormality. Dictated by Enrique Barbosa MD @ 02/28/2021 8:14:50 PM (Electronically Signed)
--- NOTE | 2021-02-28 20:15 | CR ---
INDICATION: Left ankle pain. FINDINGS: Three views of the left ankle were obtained. There is no acute fracture or dislocation. IMPRESSION: No acute bone abnormality. Dictated by Enrique Barbosa MD @ 02/28/2021 8:13:44 PM (Electronically Signed)
== END 2021-02-28 21:45 | disposition home or self-care (01) ==
LOC: MW.ED 18:22
DX: S99.912A Unspecified injury of left ankle, initial encounter (principal); Z91.040 Latex allergy status; Z91.018 Allergy to other foods; Z88.1 Allergy status to other antibiotic agents; Z88.5 Allergy status to narcotic agent; X50.1XXA Overexertion from prolonged static or awkward postures, initial encounter
CPT/HCPCS: 73610-26-LT; 73610-LT; 73620-26-LT; 73620-LT; 99283-25

== ENCOUNTER 2021-04-17 08:57 | Emergency (ER) | payer MEDICAID ==
[2021-04-17 09:45] LABS: BLOOD UREA NITROGEN,BUN 8 mg/dL (7.0-18.0); CARBON DIOXIDE,CO2 22.5 mmol/L (21.0-32.0); CHLORIDE,CL 102 mmol/L (98-107); GLUCOSE RANDOM 110 mg/dL (74-106); POTASSIUM,K 3.7 mmol/L (3.5-5.1); SODIUM,NA 138 mmol/L (136-145)
[2021-04-17] MEDS ORDERED: Acetaminophen 500 MG Tab PO ONE (09:59)
[2021-04-17 11:05] LABS: CORONAVIRUS COVID-19 NAA POSITIVE (NEGATIVE); INFLUENZA A NAA NEGATIVE (NEGATIVE); INFLUENZA B NAA NEGATIVE (NEGATIVE); RESPIRATORY SYNCYTIAL VIR NAA NEGATIVE (NEGATIVE)
[2021-04-17] MEDS ORDERED: Ketorolac 30 MG/ML SDV IVPUSH ONE (11:22)
[2021-04-17] MEDS ORDERED: Ondansetron 4 MG/2 ML SDV IVPUSH ONE (11:22)
== END 2021-04-17 11:55 | disposition home or self-care (01) ==
LOC: MW.ED 08:57
DX: U07.1 COVID-19 (principal); J12.82 Pneumonia due to coronavirus disease 2019; Z91.018 Allergy to other foods; Z91.040 Latex allergy status; Z88.5 Allergy status to narcotic agent; Z88.2 Allergy status to sulfonamides
CPT/HCPCS: 0241U; 36415; 71045; 80053; 81003; 81025; 85025; 93005; 96374; 96375; 99285; A9270; J1885; J2405

== ENCOUNTER 2021-06-24 13:38 | Emergency (ER) | payer MEDICAID ==
[2021-06-24] MEDS ORDERED: Orphenadrine 60 MG/2 ML Inj IM ONE (15:34)
[2021-06-24] MEDS ORDERED: Ketorolac 60 MG/2 ML SDV IM ONE (15:34)
[2021-06-24] MEDS ORDERED: Acetaminophen/oxyCODONE 325-5 MG Tab PO ONE (15:34)
== END 2021-06-24 16:47 | disposition home or self-care (01) ==
LOC: MW.ED 13:38
DX: M62.838 Other muscle spasm (principal); Z91.018 Allergy to other foods; Z91.040 Latex allergy status; Z88.1 Allergy status to other antibiotic agents; Z88.5 Allergy status to narcotic agent
CPT/HCPCS: 36415; 72040; 84703; 93005; 96372; 99284; A9270; J1885; J2360; 99283

== ENCOUNTER 2021-07-26 23:41 | Emergency (ER) | payer MEDICAID ==
[2021-07-27] MEDS ORDERED: Lactated Ringers 1,000 ML IV STA (01:16)
[2021-07-27] MEDS ORDERED: Ketorolac 30 MG/ML SDV IM ONE (01:17)
[2021-07-27] MEDS ORDERED: Ondansetron 4 MG/2 ML SDV IVPUSH ONE ×2 (01:21→03:12)
[2021-07-27] MEDS ORDERED: Ondansetron 4 MG/2 ML SDV ONE (01:21)
[2021-07-27 02:09] LABS: BLOOD UREA NITROGEN,BUN 13 mg/dL (7.0-18.0); CARBON DIOXIDE,CO2 24.6 mmol/L (21.0-32.0); CHLORIDE,CL 98 mmol/L (98-107); GLUCOSE RANDOM 107 mg/dL (74-106); LIPASE 53 U/L (73-393); POTASSIUM,K 3.6 mmol/L (3.5-5.1); SODIUM,NA 136 mmol/L (136-145)
[2021-07-27] MEDS ORDERED: Famotidine 20 MG/2 ML SDV IVPUSH ONE (02:31)
[2021-07-27] MEDS ORDERED: Alum Hydro/Mag Hydro/Simeth XS 15 ML, Lidocaine 2% 5 ML PO ONE ×2 (02:31)
== END 2021-07-27 04:03 | disposition home or self-care (01) ==
LOC: MW.ED 23:41
DX: K29.70 Gastritis, unspecified, without bleeding (principal); Z88.8 Allergy status to other drugs, medicaments and biological substances; Z88.2 Allergy status to sulfonamides; Z91.040 Latex allergy status; Z79.899 Other long term (current) drug therapy
CPT/HCPCS: 36415; 80053; 83690; 83735; 93005; 96372; 96374; 96375; 96376; 99284; A9270; J1885; J2405; J3490; J7120; 99283

== ENCOUNTER → 2022-01-02 | Emergency (ER) | payer MEDICAID ==
[~2022-01-02] MED LIST: Acetaminophen 500 MG Tab PO ONE
== END ==
LOC: MW.ED 04:00
DX: O26.891 Other specified pregnancy related conditions, first trimester (principal); R10.32 Left lower quadrant pain; Z3A.10 10 weeks gestation of pregnancy
CPT/HCPCS: 76801; 99284; A9270

== ENCOUNTER 2022-01-28 23:07 | Emergency (ER) | payer MEDICAID, OTHER ==
[2022-01-29] MEDS ORDERED: Acetaminophen 325 MG Tab PO ONE (00:15)
[2022-01-29] MEDS ORDERED: Ondansetron 4 MG Tab.DIS PO ONE (01:23)
== END 2022-01-29 02:02 | disposition home or self-care (01) ==
LOC: MW.ED 23:07
DX: O9A.211 Injury, poisoning and certain other consequences of external causes complicating pregnancy, first trimester (principal); S99.911A Unspecified injury of right ankle, initial encounter; S39.91XA Unspecified injury of abdomen, initial encounter; Z91.018 Allergy to other foods; Z91.040 Latex allergy status; Z88.5 Allergy status to narcotic agent; Z88.2 Allergy status to sulfonamides; Z91.048 Other nonmedicinal substance allergy status; Z79.899 Other long term (current) drug therapy; Z3A.09 9 weeks gestation of pregnancy; W23.0XXA Caught, crushed, jammed, or pinched between moving objects, initial encounter; Y92.89 Other specified places as the place of occurrence of the external cause; Y99.0 Civilian activity done for income or pay
CPT/HCPCS: 73610-26-RT; 73610-RT; 76817; 76817-26; 99284; A9270-GY

== ENCOUNTER 2022-08-17 05:25 | Inpatient (IN) | payer MEDICAID ==
[2022-08-17] MEDS ORDERED: Sodium Chloride 0.9% 2.5 ML Syringe FLUSH PRN (05:33)
[2022-08-17] MEDS ORDERED: Citric Acid/Sodium Citrate Solution 30 ML Cup PO ONE (05:33)
[2022-08-17] MEDS ORDERED: Sodium Chloride 0.9% 10 ML Syringe FLUSH PRN ×2 (05:33→05:39)
[2022-08-17] MEDS ORDERED: Sodium Chloride 0.9% 20 ML SDV IV PRN (05:33)
[2022-08-17] MEDS ORDERED: Carboprost Tromethamine 250 MCG/1 mL Vial IM PRN (05:39)
[2022-08-17] MEDS ORDERED: Water For Irrigation,Sterile 1,000 ML Container IRR PRN (05:39)
[2022-08-17] MEDS ORDERED: Tranexamic Acid 1,000 MG in Sodium Chloride 0.9% 100 ML IV PRN ×2 (05:39→09:47)
[2022-08-17] MEDS ORDERED: Misoprostol 200 MCG Tab PO PRN (05:39)
[2022-08-17] MEDS ORDERED: Methylergonovine 0.2 MG/1 ML Amp IM PRN (05:39)
[2022-08-17] MEDS ORDERED: Lactated Ringers 1,000 ML IV SCH ×2 (05:45→10:00)
[2022-08-17] MEDS ORDERED: Oxytocin/0.9 % Sodium Chloride 30 UNIT/500 ML BAG IV SCH ×2 (05:45)
[2022-08-17] MEDS: Lactated Ringers 1,000 ML IV SCH ×3 (06:25→18:42)
[2022-08-17 07:17] LABS: HEMATOCRIT 32.5 % (36.0-46.0); HEMOGLOBIN 10.4 g/dL (12.0-16.0); MEAN CORPUSCULAR HEMOGLOBIN 25.1 pg (27.0-32.0); MEAN CORPUSCULAR VOLUME 78.5 fL (80.0-98.0); MEAN PLATELET VOLUME 10.2 fL (7.40-12.00); RED BLOOD CELL COUNT 4.14 M/uL (4.30-5.90); WHITE BLOOD CELL COUNT,WBC 9.99 K/uL (4.0-11.0)
[2022-08-17] MEDS ORDERED: Ondansetron 4 MG/2 ML SDV ONE (07:38)
[2022-08-17] MEDS ORDERED: ceFAZolin 1 GM Vial ONE ×2 (07:38→08:53)
[2022-08-17] MEDS ORDERED: Oxytocin 10 Units/1 ML SDV ONE (07:38)
[2022-08-17] MEDS ORDERED: Ropivacaine 0.5% 5 MG/ML 30 ML SDV ONE ×2 (07:38→07:57)
[2022-08-17] MEDS ORDERED: Dexamethasone 4 MG/ML 5 ML MDV ONE (07:38)
[2022-08-17] MEDS ORDERED: Ketorolac 30 MG/ML SDV ONE (07:38)
[2022-08-17] MEDS ORDERED: Morphine PF 10 MG/10 ML SDV ONE (07:39)
[2022-08-17] MEDS ORDERED: fentaNYL 100 MCG/2 ML SDV ONE (07:39)
[2022-08-17] MEDS ORDERED: ceFAZolin 2 GM in Sodium Chloride 0.9% 50 ML IV ONE (07:45)
[2022-08-17] MEDS ORDERED: Bupivacaine 0.5% 10 ML SDV ONE (07:59)
[2022-08-17] MEDS ORDERED: Misoprostol 200 MCG Tab RECTAL PRN (09:47)
[2022-08-17] MEDS ORDERED: Lanolin 100% Cream 7 GM Tube TOP PRN (09:47)
[2022-08-17] MEDS ORDERED: Bisacodyl 10 MG Supp RECTAL PRN (09:47)
[2022-08-17] MEDS ORDERED: Ondansetron 4 MG/2 ML SDV IVPUSH PRN ×3 (09:47→10:05)
[2022-08-17 09:59] LABS: PH,UMBILICAL ARTERIAL 7.613 (7.18-7.38); PH,UMBILICAL VENOUS 7.382 (7.25-7.45)
[2022-08-17] MEDS ORDERED: Acetaminophen/oxyCODONE 325-5 MG Tab PO PRN (10:05)
[2022-08-17] MEDS ORDERED: diphenhydrAMINE 50 MG/ML SDV IVPUSH PRN (10:05)
[2022-08-17] MEDS ORDERED: droPERidol 5 MG/2 ML SDV IVPUSH PRN (10:05)
[2022-08-17] MEDS ORDERED: Naloxone 0.4 MG/ML SDV IVPUSH PRN (10:05)
[2022-08-17] MEDS ORDERED: fentaNYL 50 MCG/ML SDV IVPUSH PRN (10:05)
[2022-08-17] MEDS ORDERED: Metoclopramide 10 MG/2 ML SDV IVPUSH PRN (10:05)
[2022-08-17] MEDS ORDERED: fentaNYL 100 MCG/2 ML SDV IVPUSH PRN (10:05)
[2022-08-17] MEDS ORDERED: Albuterol 0.083% 2.5 MG/3 ML Neb Soln NEB PRN (10:05)
[2022-08-17] MEDS ORDERED: Morphine 2 MG/ML SYRINGE IVPUSH PRN (10:05)
[2022-08-17] MEDS ORDERED: HYDROmorphone 1 MG/ML Syringe IVPUSH PRN (10:05)
[2022-08-17] MEDS: diphenhydrAMINE 50 MG/ML SDV IVPUSH PRN (10:24)
[2022-08-17] MEDS ORDERED: Ketorolac 30 MG/ML SDV IVPUSH SCH (14:00)
[2022-08-17] MEDS: Ketorolac 30 MG/ML SDV IVPUSH SCH ×2 (14:48→20:54)
[2022-08-17] MEDS ORDERED: Magnesium Hydroxide 400 MG/5 ML Susp 30 ML Cup PO PRN (18:26)
[2022-08-17] MEDS ORDERED: hydrOXYzine Pamoate 25 MG Cap PO PRN (18:27)
[2022-08-17] MEDS: Docusate Sodium 100 MG Cap PO SCH (21:00)
[2022-08-18] MEDS: Ketorolac 30 MG/ML SDV IVPUSH SCH ×3 (02:46→13:59)
[2022-08-18] MEDS: diphenhydrAMINE 50 MG/ML SDV IVPUSH PRN (02:54)
[2022-08-18 05:43] LABS: HEMATOCRIT 31.2 % (36.0-46.0); HEMOGLOBIN 9.7 g/dL (12.0-16.0); MEAN CORPUSCULAR HEMOGLOBIN 24.4 pg (27.0-32.0); MEAN CORPUSCULAR HGB CONC 31.1 g/dL (31.0-37.0); MEAN CORPUSCULAR VOLUME 78.4 fL (80.0-98.0); MEAN PLATELET VOLUME 9.7 fL (7.40-12.00); RED BLOOD CELL COUNT 3.98 M/uL (4.30-5.90); WHITE BLOOD CELL COUNT,WBC 13.34 K/uL (4.0-11.0)
[2022-08-18 05:58] LABS: CALCIUM 8.7 mg/dL (8.5-10.1); CARBON DIOXIDE,CO2 23.1 mmol/L (21.0-32.0); CREATININE 0.8 mg/dL (0.6-1.0); EST CRCL DRUG DOSING (CG) 82.06 mL/min
[2022-08-18] MEDS: Docusate Sodium 100 MG Cap PO SCH (09:56)
[2022-08-18] MEDS: Acetaminophen/oxyCODONE 325-5 MG Tab PO PRN ×4 (09:56→21:49)
[2022-08-18] MEDS ORDERED: DULoxetine 30 MG Cap ONE (10:11)
[2022-08-18] MEDS: Simethicone 80 MG Tab.Chew PO SCH (16:17)
[2022-08-18] MEDS: Ibuprofen 800 MG Tab PO PRN (20:44)
[2022-08-18] MEDS ORDERED: Prenatal Multivitamin with Calcium/Folic Acid/Iron Tab PO SCH (21:00)
[2022-08-19] MEDS: Acetaminophen/oxyCODONE 325-5 MG Tab PO PRN ×3 (02:59→10:57)
[2022-08-19] MEDS: Docusate Sodium 100 MG Cap PO SCH ×2 (02:59→10:34)
[2022-08-19] MEDS: Simethicone 80 MG Tab.Chew PO SCH (06:40)
[2022-08-19] MEDS ORDERED: DULoxetine 30 MG Cap PO SCH (09:00)
[2022-08-19] MEDS: Ibuprofen 800 MG Tab PO PRN (10:32)
== END 2022-08-19 13:10 | disposition home or self-care (01) | DRG 788 ==
LOC: MW.OB 05:25
PROVIDERS: ADMIT Obstetrics & Gynecology; ATTEND Obstetrics & Gynecology
PROC: 10D00Z1 Extraction of Products of Conception, Low, Open Approach (ICD-10-PCS; principal; 2022-08-17)
DX: O34.211 Maternal care for low transverse scar from previous cesarean delivery (principal); Z37.0 Single live birth; O99.214 Obesity complicating childbirth; O24.424 Gestational diabetes mellitus in childbirth, insulin controlled; O36.63X0 Maternal care for excessive fetal growth, third trimester, not applicable or unspecified; O99.02 Anemia complicating childbirth; D64.9 Anemia, unspecified; O99.345 Other mental disorders complicating the puerperium; F32.A Depression, unspecified; Z3A.38 38 weeks gestation of pregnancy
CPT/HCPCS: 36415; 59025; 80048; 82803; 82947; 85027; 86592; 86850; 86900; 86901; A9270-GY; J0690; J1100; J1200; J1885; J2274; J2310; J2405; J2590; J2795; J3010; J3490; J7030; J7120

== ENCOUNTER 2022-12-03 17:39 | Emergency (ER) | payer MEDICAID ==
[2022-12-03] MEDS ORDERED: Ibuprofen 400 MG Tab PO ONE (18:39)
[2022-12-03] MEDS ORDERED: Acetaminophen 325 MG Tab PO ONE (18:39)
[2022-12-03 19:10] LABS: CORONAVIRUS COVID-19 NAA NEGATIVE (NEGATIVE); INFLUENZA A NAA NEGATIVE (NEGATIVE); INFLUENZA B NAA NEGATIVE (NEGATIVE); RESPIRATORY SYNCYTIAL VIR NAA NEGATIVE (NEGATIVE)
== END 2022-12-03 21:00 | disposition home or self-care (01) ==
LOC: MW.ED 17:39
DX: B34.9 Viral infection, unspecified (principal); E11.9 Type 2 diabetes mellitus without complications; E66.9 Obesity, unspecified; Z86.16 Personal history of COVID-19; Z20.822 Contact with and (suspected) exposure to COVID-19; Z79.899 Other long term (current) drug therapy; Z88.8 Allergy status to other drugs, medicaments and biological substances; Z88.2 Allergy status to sulfonamides; Z91.018 Allergy to other foods; Z91.040 Latex allergy status
CPT/HCPCS: 0241U; 71045; 99283; A9270

== ENCOUNTER 2023-01-06 17:37 | Emergency (ER) | payer MEDICAID ==
[2023-01-06 19:15] LABS: CORONAVIRUS COVID-19 NAA NEGATIVE (NEGATIVE); INFLUENZA A NAA NEGATIVE (NEGATIVE); INFLUENZA B NAA NEGATIVE (NEGATIVE)
[2023-01-06 19:28] LABS: APPEARANCE,URINE CLEAR; BILIRUBIN,URINE NEGATIVE (NEGATIVE); COLOR,URINE YELLOW; GLUCOSE,URINE NEGATIVE (NEGATIVE); KETONES,URINE NEGATIVE (NEGATIVE); LEUKOCYTE ESTERASE,URINE NEGATIVE (NEGATIVE); NITRITE,URINE NEGATIVE (NEGATIVE); OCCULT BLOOD,URINE NEGATIVE (NEGATIVE); PROTEIN,URINE NEGATIVE (NEGATIVE); UROBILINOGEN,URINE 0.2 EU/dL (<2.0)
== END 2023-01-06 19:51 | disposition home or self-care (01) ==
LOC: MW.ED 17:37
DX: B34.9 Viral infection, unspecified (principal); E66.9 Obesity, unspecified; Z68.41 Body mass index [BMI] 40.0-44.9, adult; Z20.822 Contact with and (suspected) exposure to COVID-19
CPT/HCPCS: 0240U; 36415; 81003; 84703; 87651; 99283

== ENCOUNTER 2023-03-08 14:13 | Emergency (ER) | payer MEDICAID ==
[2023-03-08] MEDS ORDERED: Ketorolac 30 MG/ML SDV IVPUSH ONE (15:08)
[2023-03-08 15:12] LABS: BILIRUBIN,URINE NEGATIVE (NEGATIVE); COLOR,URINE YELLOW; GLUCOSE,URINE NEGATIVE (NEGATIVE); KETONES,URINE NEGATIVE (NEGATIVE); LEUKOCYTE ESTERASE,URINE NEGATIVE (NEGATIVE); NITRITE,URINE NEGATIVE (NEGATIVE); OCCULT BLOOD,URINE NEGATIVE (NEGATIVE); PROTEIN,URINE NEGATIVE (NEGATIVE); UROBILINOGEN,URINE 0.2 EU/dL (<2.0)
[2023-03-08 15:15] LABS: APPEARANCE,URINE HAZY
[2023-03-08 15:27] LABS: HEMATOCRIT 37.8 % (37.0-47.0); HEMOGLOBIN 12.5 g/dL (12.0-16.0); MEAN CORPUSCULAR HGB CONC 33.1 g/dL (32.0-36.0); MEAN CORPUSCULAR VOLUME 81.6 fL (83.0-99.0); MEAN PLATELET VOLUME 9.7 fL (9.4-12.3); PLATELET COUNT,PLT 248 K/uL (150-400); RED BLOOD CELL COUNT 4.63 M/uL (4.10-5.30); WHITE BLOOD CELL COUNT,WBC 7.57 K/uL (3.9-11.3)
[2023-03-08 16:04] LABS: A/G RATIO 1.1 (0.9-1.6); ALBUMIN 3.9 g/dL (3.4-5.0); BILIRUBIN TOTAL 0.4 mg/dL (0.2-1.0); CALCIUM 9.2 mg/dL (8.5-10.1); CARBON DIOXIDE,CO2 27.8 mmol/L (21.0-32.0); CREATININE 0.8 mg/dL (0.6-1.0); EST CRCL DRUG DOSING (CG) 82.06 mL/min; POTASSIUM,K 3.6 mmol/L (3.5-5.1); PROTEIN TOTAL,TP 7.4 g/dL (6.4-8.2)
[2023-03-08 16:27] LABS: EOSINOPHILS ABSOLUTE MAN 0.08 K/uL (0.00-0.45); EOSINOPHILS PERCENT MAN 1 % (0-6); LYMPHOCYTES ABSOLUTE MAN 4.09 K/uL (1.00-4.80); LYMPHOCYTES PERCENT MAN 54 % (24-44); MONOCYTES ABSOLUTE MAN 0.53 K/uL (0.00-0.80); MONOCYTES PERCENT MAN 7 % (0-8); SEG NEUTROPHILS ABSOLUTE MAN 2.88 K/uL (1.80-7.70); SEG NEUTROPHILS PERCENT MAN 38 % (41-71)
== END 2023-03-08 17:43 | disposition home or self-care (01) ==
LOC: MW.ED 14:13
DX: R10.9 Unspecified abdominal pain (principal); E66.9 Obesity, unspecified; Z68.41 Body mass index [BMI] 40.0-44.9, adult; Z79.899 Other long term (current) drug therapy; Z88.2 Allergy status to sulfonamides; Z91.018 Allergy to other foods; Z91.040 Latex allergy status; Z88.8 Allergy status to other drugs, medicaments and biological substances
CPT/HCPCS: 36415; 74177; 80053; 81003; 85025; 96374; 99284; J1885

== ENCOUNTER 2023-06-27 20:44 | Emergency (ER) | payer MEDICAID ==
[2023-06-27 21:12] LABS: BASOPHILS ABSOLUTE AUTO 0.02 K/uL (0.00-0.20); BASOPHILS PERCENT AUTO 0.3 % (0.0-1.0); EOSINOPHILS ABSOLUTE AUTO 0.05 K/uL (0.00-0.45); EOSINOPHILS PERCENT AUTO 0.6 % (0.0-6.0); HEMATOCRIT 40.1 % (37.0-47.0); HEMOGLOBIN 13.8 g/dL (12.0-16.0); IMMATURE GRAN ABSOLUTE AUTO 0.02 K/uL (0.00-0.05); IMMATURE GRAN PERCENT AUTO 0.3 % (0.0-0.4); LYMPHOCYTES ABSOLUTE AUTO 1.66 K/uL (1.00-4.80); LYMPHOCYTES PERCENT AUTO 21.6 % (24.0-44.0); MEAN CORPUSCULAR HEMOGLOBIN 27.3 pg (28.0-32.0); MEAN CORPUSCULAR HGB CONC 34.4 g/dL (32.0-36.0); MEAN CORPUSCULAR VOLUME 79.2 fL (83.0-99.0); MEAN PLATELET VOLUME 9.6 fL (9.4-12.3); MONOCYTES ABSOLUTE AUTO 0.59 K/uL (0.00-0.80); MONOCYTES PERCENT AUTO 7.7 % (0.0-8.0); NEUTROPHILS ABSOLUTE AUTO 5.36 K/uL (1.80-7.70); NEUTROPHILS PERCENT AUTO 69.5 % (41.0-71.0); PLATELET COUNT,PLT 265 K/uL (150-400); RED BLOOD CELL COUNT 5.06 M/uL (4.10-5.30)
[2023-06-27] MEDS: Sodium Chloride 0.9% 1,000 ML IV ONE (21:14)
[2023-06-27] MEDS: Ketorolac 30 MG/ML SDV IVPUSH ONE (21:15)
[2023-06-27] MEDS: Famotidine 20 MG/2 ML SDV IVPUSH ONE (21:15)
[2023-06-27] MEDS: Alum Hydro/Mag Hydro/Simeth XS 15 ML, Lidocaine 2% 5 ML PO ONE (21:15)
[2023-06-27] MEDS: Ondansetron 4 MG/2 ML SDV IVPUSH ONE (21:15)
[2023-06-27 21:30] LABS: D-DIMER QUANTITATIVE 1.27 mg/L FEU (0.00-0.50); INR 1.01 (0.86-1.11); PTT,PARTIAL THROMBOPLSTIN TIME 30.2 SEC (23.9-30.7)
[2023-06-27 21:48] LABS: ALANINE AMINOTRANSFERASE,ALT 20 IU/L (14-63); ALBUMIN 3.9 g/dL (3.4-5.0); ALKALINE PHOSPHATASE 104 U/L (46-116); ASPARTATE AMNIOTRANSFERASE,AST 15 IU/L (15-37); BILIRUBIN TOTAL 0.8 mg/dL (0.2-1.0); BLOOD UREA NITROGEN,BUN 11 mg/dL (7.0-18.0); CALCIUM 9.4 mg/dL (8.5-10.1); CARBON DIOXIDE,CO2 22.9 mmol/L (21.0-32.0); CHLORIDE,CL 101 mmol/L (98-107); CREATININE 0.9 mg/dL (0.6-1.0); EST CRCL DRUG DOSING (CG) 72.95 mL/min; ESTIMATED GFR 89 mL/min (>60); GLUCOSE RANDOM 110 mg/dL (74-106); LIPASE 29 U/L (16-77); MAGNESIUM 1.8 mg/dL (1.8-2.4); POTASSIUM,K 3.5 mmol/L (3.5-5.1); PROTEIN TOTAL,TP 7.8 g/dL (6.4-8.2); SODIUM,NA 137 mmol/L (136-145)
[2023-06-27 21:48] LABS: CORONAVIRUS COVID-19 NAA NEGATIVE (NEGATIVE); INFLUENZA A NAA NEGATIVE (NEGATIVE); INFLUENZA B NAA NEGATIVE (NEGATIVE)
[2023-06-27] MEDS: Iopamidol 755 MG/ML 500 ML Multipack Bottle IVPUSH STA (22:40)
== END 2023-06-28 00:12 | disposition home or self-care (01) ==
LOC: MW.ED 20:44
DX: H66.90 Otitis media, unspecified, unspecified ear (principal); R11.10 Vomiting, unspecified; R10.9 Unspecified abdominal pain; K21.9 Gastro-esophageal reflux disease without esophagitis; E66.9 Obesity, unspecified; Z91.018 Allergy to other foods; Z91.040 Latex allergy status; Z88.8 Allergy status to other drugs, medicaments and biological substances; Z88.2 Allergy status to sulfonamides; Z88.1 Allergy status to other antibiotic agents; Z79.899 Other long term (current) drug therapy; Z86.19 Personal history of other infectious and parasitic diseases; Z68.43 Body mass index [BMI] 50.0-59.9, adult
CPT/HCPCS: 0240U; 36415; 71275; 74177; 80053; 83690; 83735; 84484; 84703; 85025; 85379; 85610; 85730; 96361; 96374; 96375; 99284; A9270; J1885; J2405; J3490; J7030; Q9967; 93010

== ENCOUNTER 2023-07-22 07:08 | Day surgery (SDC) | payer MEDICAID ==
[2023-07-22] MEDS: Lactated Ringers 1,000 ML IV SCH (07:28)
[2023-07-22] MEDS ORDERED: propofoL 50 ML ONE (07:47)
[2023-07-22] MEDS ORDERED: Ondansetron 4 MG/2 ML SDV ONE (08:00)
[2023-07-22] MEDS ORDERED: Propofol 200 MG/20 ML SDV ONE (09:05)
== END 2023-07-22 10:15 | disposition home or self-care (01) ==
LOC: MW.SDS 07:08
PROVIDERS: ATTEND Surgery
DX: K63.5 Polyp of colon (principal); K44.9 Diaphragmatic hernia without obstruction or gangrene; K29.50 Unspecified chronic gastritis without bleeding; K20.0 Eosinophilic esophagitis; E11.9 Type 2 diabetes mellitus without complications; F41.9 Anxiety disorder, unspecified; K59.00 Constipation, unspecified; M62.08 Separation of muscle (nontraumatic), other site; K42.9 Umbilical hernia without obstruction or gangrene; E66.9 Obesity, unspecified; Z68.38 Body mass index [BMI] 38.0-38.9, adult; Z87.891 Personal history of nicotine dependence; Z79.899 Other long term (current) drug therapy; Z88.2 Allergy status to sulfonamides; Z91.018 Allergy to other foods
CPT/HCPCS: 43239; 45380; 81025; J2405; J2704; J7120; 00813

== ENCOUNTER 2023-08-18 23:21 | Emergency (ER) | payer MEDICAID ==
[2023-08-18 23:47] LABS: BASOPHILS ABSOLUTE AUTO 0.02 K/uL (0.00-0.20); BASOPHILS PERCENT AUTO 0.3 % (0.0-1.0); EOSINOPHILS ABSOLUTE AUTO 0.02 K/uL (0.00-0.45); EOSINOPHILS PERCENT AUTO 0.3 % (0.0-6.0); HEMATOCRIT 39.5 % (37.0-47.0); HEMOGLOBIN 13.5 g/dL (12.0-16.0); IMMATURE GRAN ABSOLUTE AUTO 0.01 K/uL (0.00-0.05); IMMATURE GRAN PERCENT AUTO 0.1 % (0.0-0.4); LYMPHOCYTES ABSOLUTE AUTO 0.55 K/uL (1.00-4.80); LYMPHOCYTES PERCENT AUTO 8.1 % (24.0-44.0); MEAN CORPUSCULAR HEMOGLOBIN 27.9 pg (28.0-32.0); MEAN CORPUSCULAR HGB CONC 34.2 g/dL (32.0-36.0); MEAN CORPUSCULAR VOLUME 81.6 fL (83.0-99.0); MONOCYTES ABSOLUTE AUTO 0.39 K/uL (0.00-0.80); MONOCYTES PERCENT AUTO 5.7 % (0.0-8.0); NEUTROPHILS ABSOLUTE AUTO 5.81 K/uL (1.80-7.70); NEUTROPHILS PERCENT AUTO 85.5 % (41.0-71.0); PLATELET COUNT,PLT 232 K/uL (150-400); RED BLOOD CELL COUNT 4.84 M/uL (4.10-5.30)
[2023-08-18] MEDS: Sodium Chloride 0.9% 1,000 ML IV ONE (23:47)
[2023-08-18] MEDS: Sodium Chloride 0.9% 10 ML Syringe FLUSH PRN (23:47)
[2023-08-18] MEDS: Sodium Chloride 0.9% 2.5 ML Syringe FLUSH PRN (23:47)
[2023-08-18 23:58] LABS: ALBUMIN 3.8 g/dL (3.4-5.0); BILIRUBIN TOTAL 1.3 mg/dL (0.2-1.0); CALCIUM 8.5 mg/dL (8.5-10.1); CARBON DIOXIDE,CO2 18.9 mmol/L (21.0-32.0); CREATININE 0.9 mg/dL (0.6-1.0); EST CRCL DRUG DOSING (CG) 85.56 mL/min; POTASSIUM,K 3.2 mmol/L (3.5-5.1); PROTEIN TOTAL,TP 7.5 g/dL (6.4-8.2)
[2023-08-19] MEDS: Sodium Chloride 0.9% 1,000 ML IV ONE (00:14)
[2023-08-19] MEDS: Acetaminophen 325 MG Tab PO ONE (00:14)
[2023-08-19] MEDS: Ondansetron 4 MG/2 ML SDV IVPUSH ONE (00:16)
[2023-08-19] MEDS: Ketorolac 30 MG/ML SDV IVPUSH ONE (00:16)
[2023-08-19 01:26] LABS: APPEARANCE,URINE SLT CLOUDY; BILIRUBIN,URINE NEGATIVE (NEGATIVE); COLOR,URINE OTHER; GLUCOSE,URINE NEGATIVE (NEGATIVE); KETONES,URINE TRACE mg/dL (NEGATIVE); LEUKOCYTE ESTERASE,URINE NEGATIVE (NEGATIVE); NITRITE,URINE NEGATIVE (NEGATIVE); OCCULT BLOOD,URINE NEGATIVE (NEGATIVE); PROTEIN,URINE NEGATIVE (NEGATIVE); UROBILINOGEN,URINE 0.2 EU/dL (<2.0)
== END 2023-08-19 02:20 | disposition home or self-care (01) ==
LOC: MW.ED 23:21
DX: E86.0 Dehydration (principal); B34.9 Viral infection, unspecified; Z75.8 Other problems related to medical facilities and other health care; Z91.048 Other nonmedicinal substance allergy status; Z91.018 Allergy to other foods; Z88.2 Allergy status to sulfonamides; Z88.8 Allergy status to other drugs, medicaments and biological substances; Z79.899 Other long term (current) drug therapy
CPT/HCPCS: 36415; 80053; 81003; 81025; 85025; 93005; 96361; 96374; 96375; 99285; A9270; J1885; J2405; J3490; J7030; 93010; 99284

== ENCOUNTER 2023-10-28 12:58 | Emergency (ER) | payer MEDICAID ==
[2023-10-28] MEDS: Silver Nitrate Applicator Each TOP ONE (14:04)
== END 2023-10-28 13:56 | disposition home or self-care (01) ==
LOC: MW.ED 12:58
DX: R04.0 Epistaxis (principal); E66.9 Obesity, unspecified; Z91.040 Latex allergy status; Z91.018 Allergy to other foods; Z88.2 Allergy status to sulfonamides; Z91.048 Other nonmedicinal substance allergy status; Z88.8 Allergy status to other drugs, medicaments and biological substances; Z68.39 Body mass index [BMI] 39.0-39.9, adult
CPT/HCPCS: 30901; 99283; 99283-25

== ENCOUNTER 2023-12-18 12:19 | Emergency (ER) | payer MEDICAID | END 2023-12-18 13:45 | disposition left against medical advice (07) | LOC: MW.ED 12:19 | DX: Z53.21 Procedure and treatment not carried out due to patient leaving prior to being seen by health care provider (principal) ==

== ENCOUNTER 2023-12-18 22:38 | Emergency (ER) | payer MEDICAID ==
[2023-12-18] MEDS: Acetaminophen 500 MG Tab PO ONE (23:03)
[2023-12-18] MEDS: Ibuprofen 600 MG Tab PO ONE (23:03)
== END 2023-12-19 01:28 | disposition home or self-care (01) ==
LOC: MW.ED 22:38
DX: S93.402A Sprain of unspecified ligament of left ankle, initial encounter (principal); E66.9 Obesity, unspecified; Z68.41 Body mass index [BMI] 40.0-44.9, adult; Z91.048 Other nonmedicinal substance allergy status; Z91.018 Allergy to other foods; Z88.2 Allergy status to sulfonamides; Z91.040 Latex allergy status; Z88.8 Allergy status to other drugs, medicaments and biological substances; X58.XXXA Exposure to other specified factors, initial encounter
CPT/HCPCS: 73590; 73610; 73620; 99283; A9270; 99284

== ENCOUNTER 2024-09-13 23:14 | Emergency (ER) | payer SELFPAY ==
[2024-09-14 00:15] LABS: APPEARANCE,URINE CLEAR; BILIRUBIN,URINE NEGATIVE (NEGATIVE); COLOR,URINE YELLOW; GLUCOSE,URINE NEGATIVE (NEGATIVE); KETONES,URINE NEGATIVE (NEGATIVE); LEUKOCYTE ESTERASE,URINE NEGATIVE (NEGATIVE); NITRITE,URINE NEGATIVE (NEGATIVE); OCCULT BLOOD,URINE NEGATIVE (NEGATIVE); PH,URINE 5.5 (5.0-8.0); PROTEIN,URINE NEGATIVE (NEGATIVE); UROBILINOGEN,URINE 0.2 EU/dL (<2.0)
[2024-09-14 00:16] LABS: BASOPHILS ABSOLUTE AUTO 0.06 K/uL (0.00-0.20); BASOPHILS PERCENT AUTO 0.6 % (0.0-1.0); EOSINOPHILS ABSOLUTE AUTO 0.19 K/uL (0.00-0.45); EOSINOPHILS PERCENT AUTO 1.8 % (0.0-6.0); HEMATOCRIT 36.4 % (37.0-47.0); HEMOGLOBIN 12.3 g/dL (12.0-16.0); IMMATURE GRAN ABSOLUTE AUTO 0.04 K/uL (0.00-0.05); IMMATURE GRAN PERCENT AUTO 0.4 % (0.0-0.4); LYMPHOCYTES ABSOLUTE AUTO 4.55 K/uL (1.00-4.80); LYMPHOCYTES PERCENT AUTO 43.4 % (24.0-44.0); MEAN CORPUSCULAR HGB CONC 33.8 g/dL (32.0-36.0); MEAN CORPUSCULAR VOLUME 85.8 fL (83.0-99.0); MEAN PLATELET VOLUME 9.7 fL (9.4-12.3); MONOCYTES ABSOLUTE AUTO 0.62 K/uL (0.00-0.80); MONOCYTES PERCENT AUTO 5.9 % (0.0-8.0); NEUTROPHILS ABSOLUTE AUTO 5.02 K/uL (1.80-7.70); NEUTROPHILS PERCENT AUTO 47.9 % (41.0-71.0); PLATELET COUNT,PLT 266 K/uL (150-400); RED BLOOD CELL COUNT 4.24 M/uL (4.10-5.30); WHITE BLOOD CELL COUNT,WBC 10.48 K/uL (3.9-11.3)
[2024-09-14] MEDS: droPERidol 2.5 MG/ML SDV IVPUSH ONE (00:35)
[2024-09-14 00:47] LABS: A/G RATIO 1.3 (0.9-1.6); ALBUMIN 3.7 g/dL (3.4-5.0); BILIRUBIN TOTAL 0.4 mg/dL (0.2-1.0); CARBON DIOXIDE,CO2 27.3 mmol/L (21.0-32.0); CREATININE 0.9 mg/dL (0.6-1.0); EST CRCL DRUG DOSING (CG) 71.63 mL/min; POTASSIUM,K 3.6 mmol/L (3.5-5.1); PROTEIN TOTAL,TP 6.6 g/dL (6.4-8.2)
[2024-09-14] MEDS: Iopamidol 755 MG/ML 500 ML Multipack Bottle IVPUSH ONE (01:06)
[2024-09-14] MEDS: Acetaminophen 500 MG Tab PO ONE (01:31)
[2024-09-14] MEDS: diphenhydrAMINE 50 MG/ML SDV IVPUSH ONE (01:36)
[2024-09-14] MEDS: Ketorolac 30 MG/ML SDV IVPUSH ONE (01:46)
== END 2024-09-14 02:28 | disposition home or self-care (01) ==
LOC: MW.ED 23:14
DX: S39.91XA Unspecified injury of abdomen, initial encounter (principal); R11.0 Nausea; Z91.048 Other nonmedicinal substance allergy status; Z91.018 Allergy to other foods; Z91.040 Latex allergy status; Z88.8 Allergy status to other drugs, medicaments and biological substances; Z88.2 Allergy status to sulfonamides; Z79.899 Other long term (current) drug therapy; W50.0XXA Accidental hit or strike by another person, initial encounter; Y93.89 Activity, other specified
CPT/HCPCS: 36415; 74177; 80053; 81003; 83690; 84703; 85025; 96374; 96375; 99284; J1200; J1790; J1885; Q9967; 99283

== ENCOUNTER 2024-10-18 15:25 | Emergency (ER) | payer SELFPAY ==
[2024-10-18] MEDS: Ketorolac 30 MG/ML SDV IM ONE (15:53)
[2024-10-18] MEDS: Ondansetron 4 MG Tab.DIS PO ONE (15:53)
== END 2024-10-18 17:12 | disposition home or self-care (01) ==
LOC: MW.ED 15:25
DX: S16.1XXA Strain of muscle, fascia and tendon at neck level, initial encounter (principal); S09.90XA Unspecified injury of head, initial encounter; E66.9 Obesity, unspecified; Z75.3 Unavailability and inaccessibility of health-care facilities; Z79.899 Other long term (current) drug therapy; Z88.8 Allergy status to other drugs, medicaments and biological substances; Z91.048 Other nonmedicinal substance allergy status; Z91.040 Latex allergy status; Z68.36 Body mass index [BMI] 36.0-36.9, adult; W01.198A Fall on same level from slipping, tripping and stumbling with subsequent striking against other object, initial encounter
CPT/HCPCS: 70450; 72125; 96372; 99284; A9270; J1885; 99283

== ENCOUNTER 2024-12-15 16:15 | Emergency (ER) | payer SELFPAY ==
[2024-12-15 16:45] LABS: APPEARANCE,URINE CLEAR; GLUCOSE,URINE NEGATIVE (NEGATIVE); OCCULT BLOOD,URINE MODERATE (NEGATIVE)
[2024-12-15 16:59] LABS: EPITHELIAL CELLS,URINE MODERATE (NONE-FEW)
[2024-12-15 18:02] LABS: CANDIDA DNA PROBE NEGATIVE (NEGATIVE); GARDNERELLA DNA PROBE POSITIVE (NEGATIVE); TRICHOMONAS DNA PROBE NEGATIVE (NEGATIVE)
[2024-12-15] MEDS: Lidocaine 1% PF 2 ML SDV INJECT ONE (18:22)
[2024-12-15 18:37] LABS: C. TRACHOMATIS BY PCR NOT DETECTED; N. GONORRHOEAE BY PCR NOT DETECTED
== END 2024-12-15 18:55 | disposition home or self-care (01) ==
LOC: MW.ED 16:15
DX: N76.0 Acute vaginitis (principal); N39.0 Urinary tract infection, site not specified; E66.9 Obesity, unspecified; Z68.37 Body mass index [BMI] 37.0-37.9, adult; Z88.8 Allergy status to other drugs, medicaments and biological substances; Z91.040 Latex allergy status; Z91.048 Other nonmedicinal substance allergy status; Z79.899 Other long term (current) drug therapy
CPT/HCPCS: 81001; 81025; 87480; 87491; 87510; 87591; 87660; 96372; 99283; A9270; J0696; J2003

== ENCOUNTER 2025-01-04 23:24 | Emergency (ER) | payer SELFPAY | END 2025-01-05 00:39 | disposition home or self-care (01) | LOC: MW.ED 23:24 | DX: J34.89 Other specified disorders of nose and nasal sinuses (principal); J02.8 Acute pharyngitis due to other specified organisms; Z91.040 Latex allergy status; Z88.8 Allergy status to other drugs, medicaments and biological substances; Z91.018 Allergy to other foods | CPT/HCPCS: 71045; 87428; 87651; 99283; A9270; J8540 ==

== ENCOUNTER 2025-01-07 23:28 | Emergency (ER) | payer SELFPAY | END 2025-01-08 01:43 | disposition home or self-care (01) | LOC: MW.ED 23:28 | DX: R05.2 Subacute cough (principal); J98.8 Other specified respiratory disorders; E66.9 Obesity, unspecified; Z88.2 Allergy status to sulfonamides; Z91.040 Latex allergy status; Z91.048 Other nonmedicinal substance allergy status; Z88.8 Allergy status to other drugs, medicaments and biological substances; Z68.39 Body mass index [BMI] 39.0-39.9, adult | CPT/HCPCS: 71046; 71046-26; 99283 ==

== ENCOUNTER 2025-03-02 12:24 | Emergency (ER) | payer SELFPAY | END 2025-03-02 14:32 | disposition home or self-care (01) | LOC: MW.ED 12:24 | DX: J20.9 Acute bronchitis, unspecified (principal); E66.9 Obesity, unspecified; Z91.040 Latex allergy status; Z91.018 Allergy to other foods; Z91.09 Other allergy status, other than to drugs and biological substances; Z88.2 Allergy status to sulfonamides; Z88.8 Allergy status to other drugs, medicaments and biological substances; Z79.899 Other long term (current) drug therapy; Z68.41 Body mass index [BMI] 40.0-44.9, adult | CPT/HCPCS: 87428; 87651; 99283; A9270; 99284 ==